=== PATIENT | female | born 1965 | race African-American/Black ===

== ENCOUNTER 2018-08-12 20:49 | Emergency (ER) | payer SELFPAY ==
[~2018-08-12] VITALS: Ht 172.7 cm; Wt 115.9 kg
[~2018-08-12 20:49] MED LIST: FOLI1TAB16 PO; Pantoprazole PO; THIA100V3 IJ
[2018-08-12 21:46] LABS: BILIRUBIN,URINE NEGATIVE (NEG); CLARITY,URINE CLEAR; COLOR,URINE YELLOW; NITRITE,URINE NEGATIVE (NEG); PROTEIN,URINE NEGATIVE (NEG-TRACE)
[2018-08-12 21:51] LABS: BASO # 0.1 x10^3/uL (0.0-0.2); BASO % 1 % (0-3); EOS # 0.2 x10^3/uL (0.0-0.7); EOS % 2 % (0-3); HEMATOCRIT 41.7 % (36.0-47.0); HEMOGLOBIN 13.8 g/dL (12.0-15.5); LYMPH % 30 % (24-48); MEAN CORPUSCULAR HEMOGLOBIN 29 pg (25-35); MEAN CORPUSCULAR HGB CONC 33 g/dL (31-37); MEAN CORPUSCULAR VOLUME 88 fL (79-100); MONO # 0.8 x10^3/uL (0.0-1.1); MONO % 8 % (0-9); NEUT % 60 % (31-73); PLATELET COUNT 185 x10^3/uL (140-400); RED BLOOD COUNT 4.74 x10^6/uL (3.50-5.40); RED CELL DISTRIBUTION WIDTH 14.6 % (11.5-14.5)
[2018-08-12 21:54] LABS: BACTERIA,URINE MODERATE /HPF (0-FEW); SQUAMOUS EPITHELIAL CELL,UR MANY /LPF; WBC,URINE OCC /HPF (0-4)
[2018-08-12 21:59] LABS: CALCIUM 8.8 mg/dL (8.5-10.1); CREATININE 0.8 mg/dL (0.6-1.0); GFR 90.4; POTASSIUM 4.1 mmol/L (3.5-5.1)
--- NOTE | 2018-08-12 22:02 | PHYS DOC ---
Past Medical History Past Medical History: Pancreatitis (LORIE GARZA APRN) Past Surgical History: No Surgical History (LORIE GARZA APRN) Alcohol Use: Occasionally Drug Use: None (LORIE GARZA APRN) Adult General Chief Complaint Chief Complaint: ABDOMINAL PAIN HPI HPI Patient is a 53 year old AA female who presents to the ER with complaints of pain on the left side of her back below her shoulders that feels like her previous pancreatitis attacks. Pt states that she drank a bottle of wine that she received for Armin this week and she fears that may have caused the flare up. Pt states she has also been drinking prune juice to help with constipation. She denies any chest pain, shortness of breath, nausea, vomiting, or diarrhea. Pt denies any recent fevers, dysuria, or difficulty voiding. She reports some increased urinary frequency over the last few days. Pt currently rates her pain a 6/10 on the pain scale. (LORIE GARZA APRN) Review of Systems Review of Systems Constitutional: Denies fever or chills [] Eyes: Denies change in redness, or eye pain [] HENT: Denies nasal congestion or sore throat [] Respiratory: Denies cough or shortness of breath [] Cardiovascular: No additional information not addressed in HPI [] GI: See HPI : Denies dysuria or hematuria; see HPI [] Musculoskeletal: See HPI Integument: Denies rash or skin lesions [] Neurologic: Denies headache, focal weakness or sensory changes [] (LORIE GARZA APRN) Current Medications Current Medications Current Medications Medications (Trade) Dose Ordered Sig/Matthew Start Time Stop Time Status Last Admin Dose Admin Fentanyl Citrate (Fentanyl 2ml Vial) 50 mcg 1X ONCE 08/12/18 22:30 08/12/18 22:31 DC 08/12/18 22:50 50 MCG Info (CONTRAST GIVEN -- Rx MONITORING) 1 each PRN DAILY PRN 08/12/18 22:45 08/13/18 00:02 DC Iohexol (Omnipaque 300 Mg/ml) 75 ml 1X ONCE 08/12/18 22:30 08/12/18 22:31 DC 08/12/18 22:42 75 ML Magnesium Citrate (Citroma) 296 ml 1X ONCE 08/12/18 23:55 08/12/18 23:56 DC Magnesium Sulfate 50 ml @ 25 mls/hr 1X ONCE 08/12/18 23:15 08/13/18 01:14 Cancel Ondansetron HCl (Zofran) 4 mg 1X ONCE 08/12/18 22:30 08/12/18 22:31 DC 08/12/18 22:50 4 MG Sodium Chloride 1,000 ml @ 1,000 mls/hr 1X ONCE 08/12/18 22:30 08/12/18 23:29 DC 08/12/18 22:50 1,000 MLS/HR (ILDA MCFARLAND DO) Allergies Allergies Allergies Coded Allergies Type Severity Reaction Last Updated Verified No Known Drug Allergies 07/05/18 No (ILDA MCFARLAND DO) Physical Exam Physical Exam Constitutional: Well developed, well nourished, no acute distress, non-toxic appearance, obese. [] HENT: Normocephalic, atraumatic, bilateral external ears normal, oropharynx moist, no oral exudates, nose normal. [] Eyes: conjunctiva normal, no discharge. [] Neck: Normal range of motion, no stridor. [] Cardiovascular:Heart rate regular rhythm, no murmur [] Lungs & Thorax: Bilateral breath sounds clear to auscultation [] Abdomen: Bowel sounds normal, soft, no tenderness, no masses, no pulsatile masses. [] Skin: Warm, dry, no erythema, no rash. [] Back: no CVA tenderness. [] Extremities: No cyanosis, ROM intact, no edema. [] Neurologic: Alert and oriented X 3, normal motor function, normal sensory function, no focal deficits noted. [] Psychologic: Affect normal, judgement normal, mood normal. [] (LORIE GARZA APRN) Current Patient Data Vital Signs Vital Signs Date Time Temp Pulse Resp B/P (MAP) Pulse Ox O2 Delivery O2 Flow Rate FiO2 08/12/18 23:15 72 16 143/68 (93) 97 Room Air 08/12/18 21:32 97.8 97.8 (ILDA MCFARLAND DO) Lab Values Laboratory Tests Test 08/12/18 21:25 08/12/18 21:39 Urine Collection Type Unknown Urine Color Yellow Urine Clarity Clear Urine pH 6.0 Urine Specific [place] 1.025 Urine Protein Negative mg/dL (NEG-TRACE) Urine Glucose (UA) Negative mg/dL (NEG) Urine Ketones (Stick) Negative mg/dL (NEG) Urine Blood Moderate (NEG) Urine Nitrite Negative (NEG) Urine Bilirubin Negative (NEG) Urine Urobilinogen Dipstick 1.0 mg/dL (0.2 mg/dL) Urine Leukocyte Esterase Negative (NEG) Urine RBC 1-2 /HPF (0-2) Urine WBC Occ /HPF (0-4) Urine Squamous Epithelial Cells Many /LPF Urine Bacteria Moderate /HPF (0-FEW) Urine Mucus Marked /LPF White Blood Count 10.0 x10^3/uL (4.0-11.0) Red Blood Count 4.74 x10^6/uL (3.50-5.40) Hemoglobin 13.8 g/dL (12.0-15.5) Hematocrit 41.7 % (36.0-47.0) Mean Corpuscular Volume 88 fL (79-100) Mean Corpuscular Hemoglobin 29 pg (25-35) Mean Corpuscular Hemoglobin Concent 33 g/dL (31-37) Red Cell Distribution Width 14.6 % (11.5-14.5) H Platelet Count 185 x10^3/uL (140-400) Neutrophils (%) (Auto) 60 % (31-73) Lymphocytes (%) (Auto) 30 % (24-48) Monocytes (%) (Auto) 8 % (0-9) Eosinophils (%) (Auto) 2 % (0-3) Basophils (%) (Auto) 1 % (0-3) Neutrophils # (Auto) 6.0 x10^3uL (1.8-7.7) Lymphocytes # (Auto) 3.0 x10^3/uL (1.0-4.8) Monocytes # (Auto) 0.8 x10^3/uL (0.0-1.1) Eosinophils # (Auto) 0.2 x10^3/uL (0.0-0.7) Basophils # (Auto) 0.1 x10^3/uL (0.0-0.2) Sodium Level 136 mmol/L (136-145) Potassium Level 4.1 mmol/L (3.5-5.1) Chloride Level 102 mmol/L (98-107) Carbon Dioxide Level 27 mmol/L (21-32) Anion Gap 7 (6-14) Blood Urea Nitrogen 15 mg/dL (7-20) Creatinine 0.8 mg/dL (0.6-1.0) Estimated GFR (Cockcroft-Gault) 90.4 BUN/Creatinine Ratio 19 (6-20) Glucose Level 142 mg/dL (70-99) H Calcium Level 8.8 mg/dL (8.5-10.1) Total Bilirubin 0.3 mg/dL (0.2-1.0) Aspartate Amino Transferase (AST) 54 U/L (15-37) H Alanine Aminotransferase (ALT) 70 U/L (14-59) H Alkaline Phosphatase 103 U/L (46-116) Total Protein 7.6 g/dL (6.4-8.2) Albumin 3.1 g/dL (3.4-5.0) L Albumin/Globulin Ratio 0.7 (1.0-1.7) L Lipase 209 U/L (73-393) Laboratory Tests 08/12/18 21:39 Laboratory Tests 08/12/18 21:39 (ILDA MCFARLAND DO) EKG EKG [] (LORIE GARZA APRN) Radiology/Procedures Radiology/Procedures PROCEDURE: CT ABD PELV W/ IV CONTRST ONLY CT study of the abdomen and pelvis with contrast Clinical indications: Left flank pain and abdominal pain. TECHNIQUE: After IV infusion of 75 cc of Omnipaque 300, helical CT scanning of abdomen and pelvis was performed. No GI contrast was administered. This may decrease the sensitivity to detect GI tract pathology. PQRS compliance Statement One or more of the following individualized dose reduction techniques were utilized for this study: 1. Automated exposure control 2. Adjustment of the mA and/or kV according to patient size 3. Use of iterative reconstruction technique COMPARISON: July 05, 2018. FINDINGS:Corrugated appearance of the liver is seen which may be noted with cirrhosis. No focal hepatic mass is seen. Spleen is not enlarged. Pancreas is homogeneous. No peripancreatic inflammation or free fluid is seen today. Small gallstone is seen within the gallbladder. No extrahepatic biliary ductal dilatation is seen. No adrenal mass is evident. Both kidneys are normal. No focal aneurysmal dilatation of the abdominal aorta is seen. No enlarged abdominal or pelvic lymphadenopathy is evident. There is a cyst of the right ovary measuring 5 cm. There is a cyst of the left ovary measuring 3.1 cm. These have developed since the prior study. The appendix is normal. No obstructive bowel pattern is evident. No free air or free fluid or mesenteric edema is seen. No lung base consolidation is evident. No lytic process is seen. IMPRESSION: New finding of bilateral ovarian cysts. Cholelithiasis. Mild fecal retention throughout the colon. No diverticulitis is seen. [] (LORIE GARZA APRN) Course & Med Decision Making Course & Med Decision Making Pertinent Labs and Imaging studies reviewed. (See chart for details) Dx: nonspecific abdominal pain, constipation Ddx: UTI, kidney stone, pancreatitis, gallstones Pt was given 1L of NS, 50 mcg of fentanyl, and 4 mg of zofran in the ER. She reports decreased pain after medications. A bottle of magnesium citrate was also ordered. CBC unremarkable, mild elevation of AST and ALT, lipase normal, UA positive for blood- not concerning for UTI. CT revealed no acute findings, moderate stool in colon. Discussed findings and plan of care with patient who verbalized an understanding of home care, medications, follow-up, and return to ED instructions and was in agreement with the plan of care. [] (LORIE GARZA APRN) Dragon Disclaimer Dragon Disclaimer This electronic medical record was generated, in whole or in part, using a voice recognition dictation system. (LORIE GARZA APRN) Departure Departure Impression: Primary Impression: Abdominal pain Additional Impression: Constipation Disposition: 01 HOME, SELF-CARE Condition: STABLE Referrals: UNKNOWN PCP NAME (PCP) Patient Instructions: Abdominal Pain (Nonspecific), Constipation, Adult, Easy- to-Read Additional Instructions: Increase clear fluids. Follow the constipation instructions given. Follow up with your primary care doctor if symptoms persist, return to the ER if symptoms worsen. Attending Signature Attending Signature I have reviewed the PA/DIRECTOR OF COUNTERINTELLIGENCE's note and plan of care. I was available for consultation as needed during the patient's visit in the emergency department. I agree with the clinical impression, plan, and disposition. (ILDA MCFARLAND DO) Problem Qualifiers Primary Impression: Abdominal pain Abdominal location: unspecified location Qualified Codes: R10.9 - Unspecified abdominal pain Additional Impression: Constipation Constipation type: unspecified constipation type Qualified Codes: K59.00 - Constipation, unspecified LORIE GARZA APRN Aug 12, 2018 22:02 ILDA MCFARLAND DO Aug 13, 2018 01:06
[2018-08-12 22:05] LABS: ALBUMIN 3.1 g/dL (3.4-5.0); ALBUMIN/GLOBULIN RATIO 0.7 (1.0-1.7); TOTAL BILIRUBIN 0.3 mg/dL (0.2-1.0); TOTAL PROTEIN 7.6 g/dL (6.4-8.2)
[2018-08-12] MEDS ORDERED: fentaNYL PF VIAL 100 MCG/2 ML VIAL IV ONE (22:30)
[2018-08-12] MEDS ORDERED: ONDANSETRON PF 4 MG/2 ML VIAL. IV ONE (22:30)
[2018-08-12] MEDS ORDERED: IV NORMAL SALINE 1000ML BAG 1,000 ML IV ONE (22:30)
[2018-08-12] MEDS ORDERED: IOHEXOL 300 MG/ML 100ML VIAL. IV ONE (22:30)
[2018-08-12] MEDS ORDERED: CONTRAST GIVEN. MC PRN (22:45)
--- NOTE | 2018-08-12 23:09 | RAD ---
CT study of the abdomen and pelvis with contrast Clinical indications: Left flank pain and abdominal pain. TECHNIQUE: After IV infusion of 75 cc of Omnipaque 300, helical CT scanning of abdomen and pelvis was performed. No GI contrast was administered. This may decrease the sensitivity to detect GI tract pathology. PQRS compliance Statement One or more of the following individualized dose reduction techniques were utilized for this study: 1. Automated exposure control 2. Adjustment of the mA and/or kV according to patient size 3. Use of iterative reconstruction technique COMPARISON: July 05, 2018. FINDINGS:Corrugated appearance of the liver is seen which may be noted with cirrhosis. No focal hepatic mass is seen. Spleen is not enlarged. Pancreas is homogeneous. No peripancreatic inflammation or free fluid is seen today. Small gallstone is seen within the gallbladder. No extrahepatic biliary ductal dilatation is seen. No adrenal mass is evident. Both kidneys are normal. No focal aneurysmal dilatation of the abdominal aorta is seen. No enlarged abdominal or pelvic lymphadenopathy is evident. There is a cyst of the right ovary measuring 5 cm. There is a cyst of the left ovary measuring 3.1 cm. These have developed since the prior study. The appendix is normal. No obstructive bowel pattern is evident. No free air or free fluid or mesenteric edema is seen. No lung base consolidation is evident. No lytic process is seen. IMPRESSION: New finding of bilateral ovarian cysts. Cholelithiasis. Mild fecal retention throughout the colon. No diverticulitis is seen. Electronically signed by: Reddy Pandey MD (08/12/2018 11:05 PM) [facility]
[2018-08-12 23:15] VITALS: BP 143/68
[2018-08-12] MEDS ORDERED: MAGNESIUM SULFATE 2GM 50 ML IV ONE (23:15)
[2018-08-12] MEDS ORDERED: MAGNESIUM CITRATE 296 ML SOLUTION. PO ONE (23:55)
== END 2018-08-13 | disposition home or self-care (01) ==
LOC: ER 20:49
DX: K59.00 Constipation, unspecified (principal); R10.9 Unspecified abdominal pain; K80.20 Calculus of gallbladder without cholecystitis without obstruction; N83.202 Unspecified ovarian cyst, left side; N83.201 Unspecified ovarian cyst, right side
CPT/HCPCS: 36415; 74177; 80053; 81001; 83690; 85025; 87086; 96374; 96375; 99284; J2405; J3010; J7030; Q9967

== ENCOUNTER 2018-09-14 19:53 | Emergency (ER) | payer SELFPAY ==
[~2018-09-14] VITALS: Ht 172.7 cm; Wt 115.7 kg
[2018-09-14 20:16] LABS: BILIRUBIN,URINE NEGATIVE (NEG); CLARITY,URINE CLEAR; COLOR,URINE YELLOW; NITRITE,URINE NEGATIVE (NEG); PH,URINE 5.5; PROTEIN,URINE NEGATIVE (NEG-TRACE)
[2018-09-14 20:20] LABS: BACTERIA,URINE FEW /HPF (0-FEW); RBC,URINE OCC /HPF (0-2); SQUAMOUS EPITHELIAL CELL,UR OCC /LPF; WBC,URINE OCC /HPF (0-4)
[2018-09-14 20:59] LABS: BASO % 0 % (0-3); EOS # 0.1 x10^3/uL (0.0-0.7); EOS % 2 % (0-3); HEMATOCRIT 39.2 % (36.0-47.0); HEMOGLOBIN 12.8 g/dL (12.0-15.5); LYMPH # 1.7 x10^3/uL (1.0-4.8); LYMPH % 25 % (24-48); MEAN CORPUSCULAR HEMOGLOBIN 28 pg (25-35); MEAN CORPUSCULAR HGB CONC 33 g/dL (31-37); MEAN CORPUSCULAR VOLUME 87 fL (79-100); MONO # 0.7 x10^3/uL (0.0-1.1); MONO % 10 % (0-9); NEUT # 4.2 x10^3uL (1.8-7.7); NEUT % 62 % (31-73); PLATELET COUNT 192 x10^3/uL (140-400); RED BLOOD COUNT 4.53 x10^6/uL (3.50-5.40); WHITE BLOOD COUNT 6.8 x10^3/uL (4.0-11.0)
[2018-09-14 21:08] LABS: CALCIUM 9.1 mg/dL (8.5-10.1); GFR 69.9; POTASSIUM 3.8 mmol/L (3.5-5.1)
[2018-09-14 21:14] LABS: ALBUMIN 2.9 g/dL (3.4-5.0); ALBUMIN/GLOBULIN RATIO 0.6 (1.0-1.7); TOTAL BILIRUBIN 0.3 mg/dL (0.2-1.0); TOTAL PROTEIN 7.6 g/dL (6.4-8.2)
--- NOTE | 2018-09-14 21:39 | RAD ---
CHEST PA LATERAL CLINICAL INDICATION: cough and short of breath COMPARISON: None FINDINGS: Heart is normal in size. Lungs are clear. No pneumothorax or pleural effusion. Visualized bony thorax within normal limits. IMPRESSION: No acute pulmonary process. Electronically signed by: Alexi Perez DO (09/14/2018 9:36 PM) [facility]
[2018-09-14] MEDS ORDERED: HYDROcodone/APAP 5/325MG 1 TAB TABLET PO ONE (22:15)
[2018-09-14] MEDS ORDERED: IBUP-1060 PO (22:51)
--- NOTE | 2018-09-14 22:54 | PHYS DOC ---
Past Medical History Past Medical History: Pancreatitis Past Surgical History: No Surgical History Alcohol Use: Occasionally Drug Use: None Adult General Chief Complaint Chief Complaint: SHORTNESS OF BREATH HPI HPI Patient is a 53 year old female who presents with right sided chest pain with inspiration. She states that she has had a cough x 1 week and then developed the pain. She denies fevers or body aches. She denies SOA. Review of Systems Review of Systems Constitutional: Denies fever or chills [] Eyes: Denies change in visual acuity, redness, or eye pain [] HENT: Denies nasal congestion or sore throat [] Respiratory: See HPI Cardiovascular: No additional information not addressed in HPI [] GI: Denies abdominal pain, nausea, vomiting, bloody stools or diarrhea [] : Denies dysuria or hematuria [] Musculoskeletal: Denies back pain or joint pain [] Integument: Denies rash or skin lesions [] Neurologic: Denies headache, focal weakness or sensory changes [] Endocrine: Denies polyuria or polydipsia [] All other systems were reviewed and found to be within normal limits, except as documented in this note. Current Medications Current Medications Current Medications Medications (Trade) Dose Ordered Sig/Matthew Start Time Stop Time Status Last Admin Dose Admin Acetaminophen/ Hydrocodone Bitart (Lortab 5/325) 1 tab 1X ONCE 09/14/18 22:15 09/14/18 22:16 DC 09/14/18 22:36 1 TAB Allergies Allergies Allergies Coded Allergies Type Severity Reaction Last Updated Verified No Known Drug Allergies 07/05/18 No Physical Exam Physical Exam Constitutional: Well developed, well nourished, no acute distress, non-toxic appearance. [] HENT: Normocephalic, atraumatic, bilateral external ears normal, oropharynx moist, no oral exudates, nose normal. [] Eyes: PERRLA, EOMI, conjunctiva normal, no discharge. [] Neck: Normal range of motion, no tenderness, supple, no stridor. [] Cardiovascular:Heart rate regular rhythm, no murmur, reproducible pain to the right chest[] Lungs & Thorax: Bilateral breath sounds clear to auscultation with no wheezing, rales or rhonchi [] Abdomen: Bowel sounds normal, soft, no tenderness, no masses, no pulsatile masses. [] Skin: Warm, dry, no erythema, no rash. [] Back: No tenderness, no CVA tenderness. [] Extremities: No tenderness, no cyanosis, no clubbing, ROM intact, no edema. [] Neurologic: Alert and oriented X 3, normal motor function, normal sensory function, no focal deficits noted. [] Psychologic: Affect normal, judgement normal, mood normal. [] Current Patient Data Vital Signs Lab Values Laboratory Tests Test 09/14/18 20:00 09/14/18 20:45 Urine Color Yellow Urine Clarity Clear Urine pH 5.5 Urine Specific [place] >=1.030 Urine Protein Negative mg/dL (NEG-TRACE) Urine Glucose (UA) Negative mg/dL (NEG) Urine Ketones (Stick) Negative mg/dL (NEG) Urine Blood Small (NEG) Urine Nitrite Negative (NEG) Urine Bilirubin Negative (NEG) Urine Urobilinogen Dipstick 1.0 mg/dL (0.2 mg/dL) Urine Leukocyte Esterase Negative (NEG) Urine RBC Occ /HPF (0-2) Urine WBC Occ /HPF (0-4) Urine Squamous Epithelial Cells Occ /LPF Urine Bacteria Few /HPF (0-FEW) Urine Mucus Mod /LPF White Blood Count 6.8 x10^3/uL (4.0-11.0) Red Blood Count 4.53 x10^6/uL (3.50-5.40) Hemoglobin 12.8 g/dL (12.0-15.5) Hematocrit 39.2 % (36.0-47.0) Mean Corpuscular Volume 87 fL (79-100) Mean Corpuscular Hemoglobin 28 pg (25-35) Mean Corpuscular Hemoglobin Concent 33 g/dL (31-37) Red Cell Distribution Width 14.0 % (11.5-14.5) Platelet Count 192 x10^3/uL (140-400) Neutrophils (%) (Auto) 62 % (31-73) Lymphocytes (%) (Auto) 25 % (24-48) Monocytes (%) (Auto) 10 % (0-9) H Eosinophils (%) (Auto) 2 % (0-3) Basophils (%) (Auto) 0 % (0-3) Neutrophils # (Auto) 4.2 x10^3uL (1.8-7.7) Lymphocytes # (Auto) 1.7 x10^3/uL (1.0-4.8) Monocytes # (Auto) 0.7 x10^3/uL (0.0-1.1) Eosinophils # (Auto) 0.1 x10^3/uL (0.0-0.7) Basophils # (Auto) 0.0 x10^3/uL (0.0-0.2) Sodium Level 142 mmol/L (136-145) Potassium Level 3.8 mmol/L (3.5-5.1) Chloride Level 103 mmol/L (98-107) Carbon Dioxide Level 29 mmol/L (21-32) Anion Gap 10 (6-14) Blood Urea Nitrogen 19 mg/dL (7-20) Creatinine 1.0 mg/dL (0.6-1.0) Estimated GFR (Cockcroft-Gault) 69.9 BUN/Creatinine Ratio 19 (6-20) Glucose Level 155 mg/dL (70-99) H Calcium Level 9.1 mg/dL (8.5-10.1) Total Bilirubin 0.3 mg/dL (0.2-1.0) Aspartate Amino Transferase (AST) 54 U/L (15-37) H Alanine Aminotransferase (ALT) 63 U/L (14-59) H Alkaline Phosphatase 99 U/L (46-116) Troponin I Quantitative < 0.017 ng/mL (0.000-0.055) Total Protein 7.6 g/dL (6.4-8.2) Albumin 2.9 g/dL (3.4-5.0) L Albumin/Globulin Ratio 0.6 (1.0-1.7) L Laboratory Tests 09/14/18 20:45 Laboratory Tests 09/14/18 20:45 EKG EKG [] Radiology/Procedures Radiology/Procedures [][facility] [address] [place] [address] IMAGING REPORT Signed PATIENT: ROSEANNA JOHNSON ACCOUNT: [id number] : 1965 LOCATION: ER AGE: 53 SEX: F EXAM STATUS: REG ER ORD. PHYSICIAN: MAYA ELAINE APRN REASON: cough, pain with inspiration PROCEDURE: CHEST PA & LATERAL CHEST PA LATERAL CLINICAL INDICATION: cough and short of breath COMPARISON: None FINDINGS: Heart is normal in size. Lungs are clear. No pneumothorax or pleural effusion. Visualized bony thorax within normal limits. IMPRESSION: No acute pulmonary process. Electronically signed by: Alexi Quinones DO (09/14/2018 9:36 PM) [facility] DICTATED and SIGNED BY: ALEXI QUINONES DO DATE: 09/14/182135 Course & Med Decision Making Course & Med Decision Making Pertinent Labs and Imaging studies reviewed. (See chart for details) []The patient was given a dose of hydrocodone for pain. Dragon Disclaimer Dragon Disclaimer This electronic medical record was generated, in whole or in part, using a voice recognition dictation system. Departure Departure Impression: Primary Impression: Pleurisy Disposition: 01 HOME, SELF-CARE Condition: STABLE Referrals: UNKNOWN PCP NAME (PCP) Patient Instructions: Pleurisy Additional Instructions: Take ibuprofen as directed. Increase fluids and rest. Use a humidifier by your bedside at night. If you're not improving in 3 days follow-up with your primary care provider if worsening return to the emergency department. Scripts Ibuprofen (IBUPROFEN) 800 Mg Tablet 800 MG PO PRN Q6HRS PRN for INFLAMMATION, #20 TAB Prov: MAYA ELAINE APRN 09/14/18 MAYA ELAINE APRN Sep 14, 2018 22:54
[2018-09-14 23:11] VITALS: BP 110/56
--- NOTE | 2018-09-15 10:39 | EKG ---
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
== END 2018-09-14 23:15 | disposition home or self-care (01) ==
LOC: ER 19:53
DX: R09.1 Pleurisy (principal)
CPT/HCPCS: 36415; 71046; 80053; 81001; 84484; 85025; 93005; 99284-25

== ENCOUNTER 2018-11-13 20:11 | Emergency (ER) | payer SELFPAY ==
[~2018-11-13] VITALS: Ht 160 cm; Wt 113.4 kg
[~2018-11-13 20:11] MED LIST changes: +IBUP-1060 PO
[2018-11-13 20:37] LABS: BILIRUBIN,URINE NEGATIVE (NEG); CLARITY,URINE CLEAR; COLOR,URINE YELLOW; NITRITE,URINE NEGATIVE (NEG); PH,URINE 5.5; PROTEIN,URINE NEGATIVE (NEG-TRACE)
[2018-11-13 20:42] LABS: BACTERIA,URINE 0 /HPF (0-FEW); SQUAMOUS EPITHELIAL CELL,UR MOD /LPF
[2018-11-13 20:43] LABS: RBC,URINE OCC /HPF (0-2); WBC,URINE OCC /HPF (0-4)
[2018-11-13] MEDS ORDERED: NEOMY/BACITR/POLYMYXIN OINT PACKET. TP ONE (22:30)
[2018-11-13] MEDS ORDERED: CEPHALEXIN 250 MG CAPSULE. PO ONE (22:30)
[2018-11-13 22:31] VITALS: BP 158/73
[2018-11-13] MEDS ORDERED: CEPH-264 PO (22:48)
[2018-11-13] MEDS ORDERED: ACET-704 PO (22:48)
[2018-11-13] MEDS ORDERED: MUPI15CR8 TP (22:48)
--- NOTE | 2018-11-13 22:48 | PHYS DOC ---
Past Medical History Past Medical History: Pancreatitis Past Surgical History: No Surgical History Alcohol Use: Occasionally Drug Use: None Adult General Chief Complaint Chief Complaint: ABDOMINAL PAIN HPI HPI Patient is a 53 year old female who presents with abdominal pain. Patient states for the past few weeks she has had bilateral groin pain. She describes the pain as a pressure sensation. Movement makes the pain worse. Nothing improves the pain. Additionally, patient has an abscess on her belly that has been present for two weeks. She states the abscess came to a head one week ago and drained some pus. She denies any fevers, chills, nausea, vomiting, hematuria, or vaginal discharge. Review of Systems Review of Systems Constitutional: Denies fever or chills [] Eyes: Denies redness, or eye pain [] HENT: Denies nasal congestion or sore throat [] Respiratory: Denies cough or shortness of breath [] Cardiovascular: Denies chest pain or palpitations GI: Reports abdominal pain and abscess on abdomen. Denies nausea, vomiting, bloody stools or diarrhea [] : Denies dysuria or hematuria [] Musculoskeletal: Denies back pain or joint pain [] Integument: Denies rash or skin lesions [] Neurologic: Denies headache or focal weakness[] Complete systems were reviewed and found to be within normal limits, except as documented in this note. Current Medications Current Medications Current Medications Medications (Trade) Dose Ordered Sig/Matthew Start Time Stop Time Status Last Admin Dose Admin Cephalexin HCl (Keflex) 500 mg 1X ONCE 11/13/18 22:30 11/13/18 22:31 DC 11/13/18 22:49 500 MG Ketorolac Tromethamine (Toradol 30mg Vial) 30 mg 1X ONCE 11/13/18 23:00 11/13/18 23:01 DC 11/13/18 22:49 30 MG Neomycin/ Polymyxin/ Bacitracin (Triple Antibiotic Ointment) 1 pkt 1X ONCE 11/13/18 22:30 11/13/18 22:31 DC 11/13/18 22:49 1 PKT Allergies Allergies Allergies Coded Allergies Type Severity Reaction Last Updated Verified No Known Drug Allergies 07/05/18 No Physical Exam Physical Exam Constitutional: No acute distress, non-toxic appearance. [] HENT: Normocephalic, atraumatic Eyes: EOMI, conjunctiva normal, no discharge. [] Neck: Normal range of motion, no tenderness Cardiovascular:Heart rate regular rhythm, no murmur [] Lungs & Thorax: Bilateral breath sounds clear to auscultation [] Abdomen: Bowel sounds normal, soft, no tenderness, no rebound, rigidity, or gaurding. 3 cm ulcerated abscess in RLQ. [] Skin: 3 cm ulcerated abscess in RLQ of abdomen, warm, dry, no rash. [] Back: No tenderness, no CVA tenderness. [] Extremities: No tenderness, no edema. [] Neurologic: Alert and oriented X 3, no focal deficits noted. [] Psychologic: Judgement normal, mood normal. [] Current Patient Data Vital Signs Vital Signs Date Time Temp Pulse Resp B/P (MAP) Pulse Ox O2 Delivery O2 Flow Rate FiO2 11/13/18 22:31 76 158/73 (101) 95 Room Air 11/13/18 20:30 98.3 16 98.3 Lab Values Laboratory Tests Test 11/13/18 20:15 11/13/18 20:20 Urine Collection Type Unknown Urine Color Yellow Urine Clarity Clear Urine pH 5.5 Urine Specific [place] >=1.030 Urine Protein Negative mg/dL (NEG-TRACE) Urine Glucose (UA) Negative mg/dL (NEG) Urine Ketones (Stick) Trace mg/dL (NEG) Urine Blood Negative (NEG) Urine Nitrite Negative (NEG) Urine Bilirubin Negative (NEG) Urine Urobilinogen Dipstick 1.0 mg/dL (0.2 mg/dL) Urine Leukocyte Esterase Negative (NEG) Urine RBC Occ /HPF (0-2) Urine WBC Occ /HPF (0-4) Urine Squamous Epithelial Cells Mod /LPF Urine Bacteria 0 /HPF (0-FEW) Urine Mucus Mod /LPF POC Urine HCG, Qualitative Hcg negative (Negative) EKG EKG [] Radiology/Procedures Radiology/Procedures [] Course & Med Decision Making Course & Med Decision Making 53 year old female presented to the emergency department for chronic abdominal pain and abscess on abdomen. Patient stated abscess drained one week ago. She denies any fevers, chills, or hematuria. Abdominal exam revealed no tenderness. 3 cm ulcerated abscess was present in RLQ of abdomen. Labs obtained and posted to chart. Urine showed no signs of kidney stone. Symptomatic treatment pr ovided with interval improvement. Patient stable for discharge with outpatient follow-up with PCP. Discussed findings and plan with patient and family, who acknowledge understanding and agreement. [] Dragon Disclaimer Dragon Disclaimer This electronic medical record was generated, in whole or in part, using a voice recognition dictation system. Departure Departure Impression: Primary Impression: Abdominal pain Additional Impression: Abscess Disposition: HOME, SELF-CARE Condition: STABLE Referrals: UNKNOWN PCP NAME (PCP) Patient Instructions: Abdominal Pain (Nonspecific), Abscess, Care After Scripts Acetaminophen With Codeine (TYLENOL WITH CODEINE #3 TABLET) 1 Each Tablet 1 TAB PO PRN Q6HRS PRN for PAIN, #10 TAB Prov: ILDA MCFARLAND DO 11/13/18 Mupirocin Calcium (MUPIROCIN CREAM) 15 Gm Cream..g. 1 MYRANDA TP TID for 7 Days, TUBE Prov: ILDA MCFARLAND DO 11/13/18 Cephalexin (KEFLEX) 500 Mg Capsule 500 MG PO QID for 5 Days, #20 CAP Prov: ILDA MCFARLAND DO 11/13/18 Problem Qualifiers Primary Impression: Abdominal pain Abdominal location: unspecified location Qualified Codes: R10.9 - Unspecified abdominal pain ILDA MCFARLAND DO Nov 13, 2018 22:48
[2018-11-13] MEDS ORDERED: KETOROLAC 30 MG/ML VIAL. IM ONE (23:00)
== END 2018-11-13 23:13 | disposition home or self-care (01) ==
LOC: ER 20:11
DX: L02.211 Cutaneous abscess of abdominal wall (principal); G89.29 Other chronic pain
CPT/HCPCS: 81001; 81025; 96372; 99283; J1885

== ENCOUNTER 2018-12-25 19:16 | Emergency (ER) | payer SELFPAY ==
[~2018-12-25] VITALS: Ht 160 cm; Wt 113.4 kg
[~2018-12-25 19:16] MED LIST changes: +ACET-704 PO; +CEPH-264 PO; +MUPI15CR8 TP
[2018-12-25 20:02] LABS: BILIRUBIN,URINE NEGATIVE (NEG); CLARITY,URINE CLEAR; COLOR,URINE YELLOW; NITRITE,URINE NEGATIVE (NEG); PH,URINE 5.5; PROTEIN,URINE NEGATIVE (NEG-TRACE); UROBILINOGEN,URINE 0.2 mg/dL (0.2 mg/dL)
[2018-12-25] MEDS ORDERED: IV NORMAL SALINE 1000ML BAG 1,000 ML IV SCH (20:03)
[2018-12-25] MEDS ORDERED: fentaNYL PF VIAL 100 MCG/2 ML VIAL IV PRN (20:15)
[2018-12-25 20:16] LABS: BACTERIA,URINE FEW /HPF (0-FEW); RBC,URINE OCC /HPF (0-2); SQUAMOUS EPITHELIAL CELL,UR OCC /LPF
[2018-12-25 20:25] LABS: BASO # 0.1 x10^3/uL (0.0-0.2); BASO % 1 % (0-3); EOS # 0.1 x10^3/uL (0.0-0.7); EOS % 2 % (0-3); HEMATOCRIT 40.5 % (36.0-47.0); HEMOGLOBIN 13.5 g/dL (12.0-15.5); LYMPH # 2.9 x10^3/uL (1.0-4.8); LYMPH % 34 % (24-48); MEAN CORPUSCULAR HEMOGLOBIN 29 pg (25-35); MEAN CORPUSCULAR HGB CONC 33 g/dL (31-37); MEAN CORPUSCULAR VOLUME 88 fL (79-100); MONO # 0.9 x10^3/uL (0.0-1.1); MONO % 10 % (0-9); NEUT # 4.7 x10^3uL (1.8-7.7); NEUT % 54 % (31-73); PLATELET COUNT 174 x10^3/uL (140-400); RED BLOOD COUNT 4.59 x10^6/uL (3.50-5.40); RED CELL DISTRIBUTION WIDTH 14.2 % (11.5-14.5); WHITE BLOOD COUNT 8.7 x10^3/uL (4.0-11.0)
[2018-12-25 20:41] LABS: CALCIUM 9.1 mg/dL (8.5-10.1); CREATININE 0.9 mg/dL (0.6-1.0); POTASSIUM 3.9 mmol/L (3.5-5.1)
[2018-12-25] MEDS ORDERED: ONDANSETRON PF 4 MG/2 ML VIAL. IV ONE (20:45)
[2018-12-25 20:48] LABS: ALBUMIN 3.1 g/dL (3.4-5.0); ALBUMIN/GLOBULIN RATIO 0.7 (1.0-1.7); TOTAL BILIRUBIN 0.3 mg/dL (0.2-1.0); TOTAL PROTEIN 7.7 g/dL (6.4-8.2)
--- NOTE | 2018-12-25 20:53 | RAD ---
CT Abdomen and Pelvis without contrast History: Flank pain Technique: Noncontrast CT imaging was performed of the abdomen and pelvis. Multiplanar images are reviewed. Exposure: One or more of the following individualized dose reduction techniques were utilized for this examination: 1. Automated exposure control 2. Adjustment of the mA and/or kV according to patient size 3. Use of iterative reconstruction technique. Comparison: August 12, 2018 Findings: There is a small 0.2 to 0.3 cm left renal calculus, no hydronephrosis of either kidney. Ureters are somewhat difficult to visualize in their entirety and there are phleboliths present, ureters not significantly dilated. Evaluation of bowel is limited without oral contrast. Bowel is not significantly dilated. There is no significant free fluid or free air. Normal appendix is visualized. There is retained stool greater of the right colon. There is again nodular margin of the liver. Evaluation of abdominal visceral organs is limited without intravenous contrast, no new focal abnormality liver, spleen, pancreas. There are again some nonspecific nodes in the superior abdomen in the gastrohepatic region unchanged in size. There is again small gallstone. Previously seen adnexal cysts are not seen on this exam. Impression: 1. There is small nonobstructive left renal calculus, no hydronephrosis. Ureters are somewhat difficult to visualize in their entirety and there are phleboliths present although no significant ureteral dilatation. 2. There is evidence of cirrhosis. 3. There is small gallstone. 4. There is no CT evidence of acute appendicitis. Electronically signed by: Vega Rodriguez MD (12/25/2018 8:50 PM) [facility]
[2018-12-25] MEDS ORDERED: TRAM50TA PO (21:07)
[2018-12-25] MEDS ORDERED: ONDA4TAB7 PO (21:07)
[2018-12-25] MEDS ORDERED: SULF1TAB24 PO (21:07)
--- NOTE | 2018-12-25 21:10 | PHYS DOC ---
Past Medical History Past Medical History: Diabetes-Type II, High Cholesterol, Hypertension, Pancreatitis Past Surgical History: No Surgical History Alcohol Use: Occasionally Drug Use: None Adult General Chief Complaint Chief Complaint: FLANK PAIN HPI HPI Patient is a 53-year-old female who presents with complaint of left flank pain that started this morning. Patient also indicates that she has had some nausea. She states that she drank a few beers over the weekend and is worried that she may have caused some inflammation of her pancreas that she has a history of pancreatitis. She rates pain at an 8 out of 10. She states that nothing is improving her pain. She denies any fever. She does admit to some urinary di scomfort.[] Review of Systems Review of Systems Constitutional: Denies fever or chills [] Respiratory: Denies cough or shortness of breath [] Cardiovascular: No additional information not addressed in HPI [] GI: Complains of left lower and epigastric abdominal pain with nausea. Denies vomiting or diarrhea [] : Complains of dysuria without hematuria [] Musculoskeletal: Complains of left-sided back pain [] All other systems were reviewed and found to be within normal limits, except as documented in this note. Current Medications Current Medications Current Medications Medications (Trade) Dose Ordered Sig/Matthew Start Time Stop Time Status Last Admin Dose Admin Fentanyl Citrate (Fentanyl 2ml Vial) 25 mcg PRN Q15MIN PRN 12/25/18 20:15 12/25/18 21:23 DC 12/25/18 20:33 25 MCG Ondansetron HCl (Zofran) 4 mg 1X ONCE 12/25/18 20:45 12/25/18 20:46 DC 12/25/18 20:32 4 MG Sodium Chloride 1,000 ml @ 1,000 mls/hr Q1H 12/25/18 20:03 12/25/18 21:02 DC 12/25/18 20:32 1,000 MLS/HR Allergies Allergies Allergies Coded Allergies Type Severity Reaction Last Updated Verified No Known Drug Allergies 07/05/18 No Physical Exam Physical Exam Constitutional: Well developed, well nourished, no acute distress, non-toxic appearance. [] HENT: Normocephalic, atraumatic, bilateral external ears normal, oropharynx moist, no oral exudates, nose normal. [] Eyes: PERRLA, EOMI, conjunctiva normal, no discharge. [] Neck: Normal range of motion, no tenderness, supple, no stridor. [] Cardiovascular:Heart rate regular rhythm, no murmur [] Lungs & Thorax: Bilateral breath sounds clear to auscultation [] Abdomen: Bowel sounds normal, soft, with mild epigastric and left lower quadrant tenderness. [] Skin: Warm, dry, no erythema, no rash. [] Extremities: No tenderness, no cyanosis, no clubbing, ROM intact, no edema. [] Neurologic: Alert and oriented X 3, no focal deficits noted. [] Current Patient Data Vital Signs Vital Signs Date Time Temp Pulse Resp B/P (MAP) Pulse Ox O2 Delivery O2 Flow Rate FiO2 12/25/18 21:15 69 18 136/60 (85) 98 12/25/18 19:17 99.0 Room Air 99.0 Lab Values Laboratory Tests Test 12/25/18 19:36 12/25/18 20:10 Urine Color Yellow Urine Clarity Clear Urine pH 5.5 Urine Specific [place] >=1.030 Urine Protein Negative mg/dL (NEG-TRACE) Urine Glucose (UA) Negative mg/dL (NEG) Urine Ketones (Stick) Trace mg/dL (NEG) Urine Blood Negative (NEG) Urine Nitrite Negative (NEG) Urine Bilirubin Negative (NEG) Urine Urobilinogen Dipstick 0.2 mg/dL (0.2 mg/dL) Urine Leukocyte Esterase Small (NEG) Urine RBC Occ /HPF (0-2) Urine WBC 5-10 /HPF (0-4) Urine Squamous Epithelial Cells Occ /LPF Urine Bacteria Few /HPF (0-FEW) Urine Mucus Mod /LPF White Blood Count 8.7 x10^3/uL (4.0-11.0) Red Blood Count 4.59 x10^6/uL (3.50-5.40) Hemoglobin 13.5 g/dL (12.0-15.5) Hematocrit 40.5 % (36.0-47.0) Mean Corpuscular Volume 88 fL (79-100) Mean Corpuscular Hemoglobin 29 pg (25-35) Mean Corpuscular Hemoglobin Concent 33 g/dL (31-37) Red Cell Distribution Width 14.2 % (11.5-14.5) Platelet Count 174 x10^3/uL (140-400) Neutrophils (%) (Auto) 54 % (31-73) Lymphocytes (%) (Auto) 34 % (24-48) Monocytes (%) (Auto) 10 % (0-9) H Eosinophils (%) (Auto) 2 % (0-3) Basophils (%) (Auto) 1 % (0-3) Neutrophils # (Auto) 4.7 x10^3uL (1.8-7.7) Lymphocytes # (Auto) 2.9 x10^3/uL (1.0-4.8) Monocytes # (Auto) 0.9 x10^3/uL (0.0-1.1) Eosinophils # (Auto) 0.1 x10^3/uL (0.0-0.7) Basophils # (Auto) 0.1 x10^3/uL (0.0-0.2) Sodium Level 141 mmol/L (136-145) Potassium Level 3.9 mmol/L (3.5-5.1) Chloride Level 104 mmol/L (98-107) Carbon Dioxide Level 28 mmol/L (21-32) Anion Gap 9 (6-14) Blood Urea Nitrogen 18 mg/dL (7-20) Creatinine 0.9 mg/dL (0.6-1.0) Estimated GFR (Cockcroft-Gault) 79.0 BUN/Creatinine Ratio 20 (6-20) Glucose Level 152 mg/dL (70-99) H Calcium Level 9.1 mg/dL (8.5-10.1) Total Bilirubin 0.3 mg/dL (0.2-1.0) Aspartate Amino Transferase (AST) 69 U/L (15-37) H Alanine Aminotransferase (ALT) 108 U/L (14-59) H Alkaline Phosphatase 82 U/L (46-116) Total Protein 7.7 g/dL (6.4-8.2) Albumin 3.1 g/dL (3.4-5.0) L Albumin/Globulin Ratio 0.7 (1.0-1.7) L Lipase 105 U/L (73-393) Laboratory Tests 12/25/18 20:10 Laboratory Tests 12/25/18 20:10 EKG EKG [] Radiology/Procedures Radiology/Procedures [] Impressions: PROCEDURE: CT ABDOMEN PELVIS WO CONTRAST CT Abdomen and Pelvis without contrast History: Flank pain Technique: Noncontrast CT imaging was performed of the abdomen and pelvis. Multiplanar images are reviewed. Exposure: One or more of the following individualized dose reduction techniques were utilized for this examination: 1. Automated exposure control 2. Adjustment of the mA and/or kV according to patient size 3. Use of iterative reconstruction technique. Comparison: August 12, 2018 Findings: There is a small 0.2 to 0.3 cm left renal calculus, no hydronephrosis of either kidney. Ureters are somewhat difficult to visualize in their entirety and there are phleboliths present, ureters not significantly dilated. Evaluation of bowel is limited without oral contrast. Bowel is not significantly dilated. There is no significant free fluid or free air. Normal appendix is visualized. There is retained stool greater of the right colon. There is again nodular margin of the liver. Evaluation of abdominal visceral organs is limited without intravenous contrast, no new focal abnormality liver, spleen, pancreas. There are again some nonspecific nodes in the superior abdomen in the gastrohepatic region unchanged in size. There is again small gallstone. Previously seen adnexal cysts are not seen on this exam. Impression: 1. There is small nonobstructive left renal calculus, no hydronephrosis. Ureters are somewhat difficult to visualize in their entirety and there are phleboliths present although no significant ureteral dilatation. 2. There is evidence of cirrhosis. 3. There is small gallstone. 4. There is no CT evidence of acute appendicitis. Electronically signed by: Vega Rodriguez MD (12/25/2018 8:50 PM) [facility] Course & Med Decision Making Course & Med Decision Making Pertinent Labs and Imaging studies reviewed. (See chart for details) [] Dragon Disclaimer Dragon Disclaimer This electronic medical record was generated, in whole or in part, using a voice recognition dictation system. Departure Departure Impression: Primary Impression: Left flank pain Additional Impression: UTI (urinary tract infection) Disposition: HOME, SELF-CARE Condition: STABLE Referrals: UNKNOWN PCP NAME (PCP) Patient Instructions: Flank Pain, Urinary Tract Infection Scripts Ondansetron Hcl (ZOFRAN) 4 Mg Tablet 4 MG PO PRN TID PRN for NAUSEA, #15 nausea/vomiting Prov: TIERNEY PROCTOR Jr. DO 12/25/18 Tramadol Hcl (TRAMADOL HCL) 50 Mg Tablet 50 MG PO Q6HRS PRN for PAIN, #12 TAB Prov: TIERNEY PROCTOR Jr. DO 12/25/18 Sulfamethoxazole/Trimethoprim (BACTRIM DS TABLET) 1 Each Tablet 1 TAB PO BID, #14 TAB Prov: TIERNEY PROCTOR Jr. DO 12/25/18 Problem Qualifiers Additional Impression: UTI (urinary tract infection) Urinary tract infection type: site unspecified Hematuria presence: without hematuria Qualified Codes: N39.0 - Urinary tract infection, site not specified TIERNEY PROCTOR Jr. DO Dec 25, 2018 21:10
[2018-12-25 21:15] VITALS: BP 136/60
== END 2018-12-25 21:20 | disposition home or self-care (01) ==
LOC: ER 19:16
DX: N20.0 Calculus of kidney (principal); R10.32 Left lower quadrant pain; R10.31 Right lower quadrant pain; E11.9 Type 2 diabetes mellitus without complications; E78.00 Pure hypercholesterolemia, unspecified; I10 Essential (primary) hypertension
CPT/HCPCS: 36415; 74176; 80053; 81001; 83690; 85025; 87086; 96374; 96375; 99285; J2405; J3010; J7030

== ENCOUNTER 2019-02-09 13:53 | Observation (INO) | payer SELFPAY ==
[~2019-02-09] VITALS: Ht 160 cm; Wt 111.1 kg
[~2019-02-09 13:53] MED LIST changes: +BP med PO; +LISI10TA2 PO; +METF500T9 PO; +MULT1TAB52 PO; +Metformin; +ONDA4TAB7 PO; +SULF1TAB24 PO; +TRAM50TA PO
[2019-02-09] MEDS ORDERED: ONDANSETRON PF 4 MG/2 ML VIAL. IV ONE (15:30)
[2019-02-09] MEDS ORDERED: fentaNYL PF VIAL 100 MCG/2 ML VIAL IV ONE (15:30)
[2019-02-09] MEDS ORDERED: IV NORMAL SALINE 1000ML BAG 1,000 ML IV ONE (15:30)
--- NOTE | 2019-02-09 15:41 | PHYS DOC ---
Past Medical History Past Medical History: Diabetes-Type II, High Cholesterol, Hypertension, Pancreatitis Past Surgical History: No Surgical History Alcohol Use: None Drug Use: None Adult General Chief Complaint Chief Complaint: ABDOMINAL PAIN HPI HPI Patient is a 53 year old female who presents with abdominal pain has been ongoing since last Tuesday. I am familiar with this patient I saw her on January 31 and admitted her to the hospital. The patient states that she left the hospital ama due to her job. She states the pain is continued and that she is now able to stay in the hospital and wants to go back in the hospital try to resolve her issues. It's her pain is 10 out of 10 in severity. Review of Systems Review of Systems Constitutional: Denies fever or chills [] Eyes: Denies change in visual acuity, redness, or eye pain [] HENT: Denies nasal congestion or sore throat [] Respiratory: Denies cough or shortness of breath [] Cardiovascular: No additional information not addressed in HPI [] GI: Reports abdominal pain, Denies nausea, vomiting, bloody stools or diarrhea [] : Denies dysuria or hematuria [] Musculoskeletal: Denies back pain or joint pain [] Integument: Denies rash or skin lesions [] Neurologic: Denies headache, focal weakness or sensory changes [] Endocrine: Denies polyuria or polydipsia [] Complete systems were reviewed and found to be within normal limits, except as documented in this note. Current Medications Current Medications Current Medications Medications (Trade) Dose Ordered Sig/Matthew Start Time Stop Time Status Last Admin Dose Admin Fentanyl Citrate (Fentanyl 2ml Vial) 50 mcg 1X ONCE 02/09/19 15:30 02/09/19 15:31 DC 02/09/19 15:38 50 MCG Multi-Ingredient Mouthwash/Gargle (Gi Cocktail) 20 ml 1X ONCE 02/09/19 17:15 02/09/19 17:16 DC 02/09/19 17:19 20 ML Ondansetron HCl (Zofran) 4 mg 1X ONCE 02/09/19 15:30 02/09/19 15:31 DC 02/09/19 15:37 4 MG Sodium Chloride 1,000 ml @ 1,000 mls/hr 1X ONCE 02/09/19 15:30 02/09/19 16:29 DC 02/09/19 15:38 1,000 MLS/HR Allergies Allergies Allergies Coded Allergies Type Severity Reaction Last Updated Verified No Known Drug Allergies 07/05/18 No Physical Exam Physical Exam Constitutional: Well developed, well nourished, no acute distress, non-toxic appearance. [] HENT: Normocephalic, atraumatic, bilateral external ears normal, oropharynx moist, no oral exudates, nose normal. [] Eyes: PERRLA, EOMI, conjunctiva normal, no discharge. [] Neck: Normal range of motion, no tenderness, supple, no stridor. [] Cardiovascular:Heart rate regular rhythm, no murmur [] Lungs & Thorax: Bilateral breath sounds clear to auscultation [] Abdomen: Bowel sounds normal, soft, tenderness diffusely, no masses, no pulsatile masses. [] Skin: Warm, dry, no erythema, no rash. [] Back: No tenderness, no CVA tenderness. [] Extremities: No tenderness, no cyanosis, no clubbing, ROM intact, no edema. [] Neurologic: Alert and oriented X 3, normal motor function, normal sensory function, no focal deficits noted. [] Psychologic: Affect normal, judgement normal, mood normal. [] Current Patient Data Vital Signs Vital Signs Date Time Temp Pulse Resp B/P (MAP) Pulse Ox O2 Delivery O2 Flow Rate FiO2 02/09/19 15:38 Room Air 02/09/19 14:30 98.4 76 18 146/66 (92) 98 98.4 Lab Values Laboratory Tests Test 02/09/19 16:10 White Blood Count 9.3 x10^3/uL (4.0-11.0) Red Blood Count 4.46 x10^6/uL (3.50-5.40) Hemoglobin 13.2 g/dL (12.0-15.5) Hematocrit 39.4 % (36.0-47.0) Mean Corpuscular Volume 88 fL (79-100) Mean Corpuscular Hemoglobin 30 pg (25-35) Mean Corpuscular Hemoglobin Concent 34 g/dL (31-37) Red Cell Distribution Width 13.7 % (11.5-14.5) Platelet Count 179 x10^3/uL (140-400) Neutrophils (%) (Auto) 63 % (31-73) Lymphocytes (%) (Auto) 25 % (24-48) Monocytes (%) (Auto) 10 % (0-9) H Eosinophils (%) (Auto) 2 % (0-3) Basophils (%) (Auto) 1 % (0-3) Neutrophils # (Auto) 5.8 x10^3/uL (1.8-7.7) Lymphocytes # (Auto) 2.3 x10^3/uL (1.0-4.8) Monocytes # (Auto) 0.9 x10^3/uL (0.0-1.1) Eosinophils # (Auto) 0.1 x10^3/uL (0.0-0.7) Basophils # (Auto) 0.1 x10^3/uL (0.0-0.2) Sodium Level 140 mmol/L (136-145) Potassium Level 4.1 mmol/L (3.5-5.1) Chloride Level 102 mmol/L (98-107) Carbon Dioxide Level 30 mmol/L (21-32) Anion Gap 8 (6-14) Blood Urea Nitrogen 17 mg/dL (7-20) Creatinine 0.8 mg/dL (0.6-1.0) Estimated GFR (Cockcroft-Gault) 90.4 BUN/Creatinine Ratio 21 (6-20) H Glucose Level 95 mg/dL (70-99) Calcium Level 8.8 mg/dL (8.5-10.1) Total Bilirubin 0.4 mg/dL (0.2-1.0) Aspartate Amino Transferase (AST) 34 U/L (15-37) Alanine Aminotransferase (ALT) 47 U/L (14-59) Alkaline Phosphatase 76 U/L (46-116) Total Protein 7.7 g/dL (6.4-8.2) Albumin 3.1 g/dL (3.4-5.0) L Albumin/Globulin Ratio 0.7 (1.0-1.7) L Lipase 176 U/L (73-393) Laboratory Tests 02/09/19 16:10 Laboratory Tests 02/09/19 16:10 EKG EKG [] Radiology/Procedures Radiology/Procedures [] Course & Med Decision Making Course & Med Decision Making Pertinent Labs and Imaging studies reviewed. (See chart for details) Will redraw labs, and give medication. Discussed with patient how GI saw her in her recent admission and recommended PPI course. Discussed prescribing medicine and trying outpatient. Patient states she would rather go inpatient for pain control. Will page hospitalist. Discussed with Dr. Murphy who agreed to admission. Went and discussed admission with patient again to discuss how this would be likely a 23 hr observation and that we could try PPI's outpatient. Patient was insistent she is having trouble eating and sleeping and wants to go in hospital. Patient did state that the GI cocktail is helping but she still is having pain. Will admit for observation. Dragon Disclaimer Dragon Disclaimer This electronic medical record was generated, in whole or in part, using a voice recognition dictation system. Departure Departure Impression: Primary Impression: Intractable abdominal pain Disposition: ADMITTED INPATIENT Admitting Physician: BRENDEN Condition: STABLE Referrals: UNKNOWN PCP NAME (PCP) ILDA VALENZUELA APRN Feb 09, 2019 15:40
[2019-02-09 16:20] LABS: BASO # 0.1 x10^3/uL (0.0-0.2); BASO % 1 % (0-3); EOS # 0.1 x10^3/uL (0.0-0.7); EOS % 2 % (0-3); HEMATOCRIT 39.4 % (36.0-47.0); HEMOGLOBIN 13.2 g/dL (12.0-15.5); LYMPH # 2.3 x10^3/uL (1.0-4.8); LYMPH % 25 % (24-48); MEAN CORPUSCULAR HEMOGLOBIN 30 pg (25-35); MEAN CORPUSCULAR HGB CONC 34 g/dL (31-37); MEAN CORPUSCULAR VOLUME 88 fL (79-100); MONO # 0.9 x10^3/uL (0.0-1.1); MONO % 10 % (0-9); NEUT # 5.8 x10^3/uL (1.8-7.7); NEUT % 63 % (31-73); PLATELET COUNT 179 x10^3/uL (140-400); RED BLOOD COUNT 4.46 x10^6/uL (3.50-5.40); RED CELL DISTRIBUTION WIDTH 13.7 % (11.5-14.5); WHITE BLOOD COUNT 9.3 x10^3/uL (4.0-11.0)
[2019-02-09 16:32] LABS: CALCIUM 8.8 mg/dL (8.5-10.1); CREATININE 0.8 mg/dL (0.6-1.0); GFR 90.4; POTASSIUM 4.1 mmol/L (3.5-5.1)
[2019-02-09 16:38] LABS: ALBUMIN 3.1 g/dL (3.4-5.0); ALBUMIN/GLOBULIN RATIO 0.7 (1.0-1.7); TOTAL BILIRUBIN 0.4 mg/dL (0.2-1.0); TOTAL PROTEIN 7.7 g/dL (6.4-8.2)
[2019-02-09] MEDS ORDERED: LIDO:MAALOX 1:1 20 ML SINGLE DOSE. SWSW ONE (17:15)
[2019-02-09] MEDS ORDERED: ONDANSETRON PF 4 MG/2 ML VIAL. IV PRN (17:30)
[2019-02-09] MEDS ORDERED: PANTOPRAZOLE 40 MG TABLET.DR. PO ONE (18:30)
[2019-02-09 18:39] VITALS: BP 103/65
--- NOTE | 2019-02-09 20:00 | NUR ---
The patient, ROSEANNA JOHNSON, 53 y/o, F admitted by IHSAN CARR MD, was given written information regarding hospital policies, unit procedures and contact persons. Valuables were checked and noted. Patient's belongings left with patient at this time. Patient denies pain at this time. Patient is currently laying in bed eating a turkey box lunch and drinking apple juice while watching TV. This RN will continue to monitor the patient at this time.
[2019-02-09] MEDS: fentaNYL PF VIAL 100 MCG/2 ML VIAL IV PRN ×2 (20:26→23:57)
[2019-02-09 23:00] VITALS: BP 119/62
[2019-02-10 03:00] VITALS: BP 110/61
[2019-02-10] MEDS: fentaNYL PF VIAL 100 MCG/2 ML VIAL IV PRN (03:33)
[2019-02-10] MEDS ORDERED: PANTOPRAZOLE 40 MG TABLET.DR. PO SCH (07:30)
[2019-02-10 07:59] VITALS: BP 115/64
[2019-02-10] MEDS ORDERED: oxyCODONE/APAP 5/325 1 TAB TABLET PO PRN (08:15)
[2019-02-10] MEDS ORDERED: fentaNYL PF VIAL 100 MCG/2 ML VIAL IV PRN (08:15)
[2019-02-10] MEDS ORDERED: DEXTROSE 50% 25 GM / 50ML DISP.SYRIN. IV PRN (08:15)
[2019-02-10] MEDS ORDERED: ONDANSETRON PF 4 MG/2 ML VIAL. IV PRN (08:15)
[2019-02-10 08:30] VITALS: BP 146/70
[2019-02-10 08:36] VITALS: BP 110/61
[2019-02-10] MEDS ORDERED: MULTIVITAMIN with MINERAL TABLET. PO SCH (09:00)
[2019-02-10] MEDS ORDERED: LISINOPRIL 10 MG TABLET PO SCH (09:00)
[2019-02-10] MEDS ORDERED: ONDA4TAB7 PO (09:08)
[2019-02-10] MEDS ORDERED: DICY10CA3 PO (09:08)
[2019-02-10] MEDS ORDERED: PANT20TA2 PO (09:08)
[2019-02-10] MEDS ORDERED: HYDR-3164 PO (09:08)
--- NOTE | 2019-02-10 09:13 | PDOC1 ---
History and Physical Date of Admission Date of Admission DATE: 02/10/19 TIME: 09:08 Identification/Chief Complaint Chief Complaint abd pain Source Source: Caregiver, Chart review, Patient History of Present Illness History of Present Illness 43-year-old -Ira[place] female, BMI 44, abdominal pain. CAT scan 1 week ago normal. Blood work normal. Likes narcotics. As per ER Stewart.Luz: Patient is a 53 year old female who presents with abdominal pain has been ongoing since last Tuesday. I am familiar with this patient I saw her on January 31 and admitted her to the hospital. The patient states that she left the hospital ama due to her job. She states the pain is continued and that she is now able to stay in the hospital and wants to go back in the hospital try to resolve her issues. It's her pain is 10 out of 10 in severity.. ISEE HER NOW tuesday, better, ID did tell her as OP GI and OP PCP- she understands - TRIAL of PPI< bentyl and zofran and she requests pain meds SHe takes only 3 meds at home, mostly for BP She did fall in shower today at hospital, hit the elbow but no injuries Past Medical History Cardiovascular: HTN, Hyperlipidemia Pulmonary: COPD Heme/Onc: No pertinent hx Hepatobiliary: Cirrhosis, Hep A/B/C Psych: Addictions Endocrine: Diabetes Past Surgical History Past Surgical History: No pertinent history Family History Family History: No Significant, Diabetes, Hypertension Family History: Parent, Other Social History Smoke: No ALCOHOL: none Drugs: None Current Problem List Problem List Problems Medical Problems: (1) Intractable abdominal pain Status: Acute Current Medications Current Medications Current Medications Fentanyl Citrate (Fentanyl 2ml Vial) 50 mcg 1X ONCE IV Last administered on 02/09/19at 15:38; Start 02/09/19 at 15:30; Stop 02/09/19 at 15:31; Status DC Ondansetron HCl (Zofran) 4 mg 1X ONCE IV Last administered on 02/09/19at 15:37; Start 02/09/19 at 15:30; Stop 02/09/19 at 15:31; Status DC Sodium Chloride 1,000 ml @ 1,000 mls/hr 1X ONCE IV Last administered on 02/09/19at 15:38; Start 02/09/19 at 15:30; Stop 02/09/19 at 16:29; Status DC Multi-Ingredient Mouthwash/Gargle (Gi Cocktail) 20 ml 1X ONCE SWSW Last administered on 02/09/19at 17:19; Start 02/09/19 at 17:15; Stop 02/09/19 at 17:16; Status DC Ondansetron HCl (Zofran) 4 mg PRN Q8HRS PRN IV NAUSEA/VOMITING; Start 02/09/19 at 17:30; Stop 02/10/19 at 08:10; Status DC Fentanyl Citrate (Fentanyl 2ml Vial) 50 mcg PRN Q1HR PRN IV PAIN Last a dministered on 02/10/19at 03:33; Start 02/09/19 at 17:30; Stop 02/10/19 at 08:10; Status DC Pantoprazole Sodium (Protonix) 40 mg DAILYAC PO Last administered on 02/10/19at 08:34; Start 02/10/19 at 07:30 Pantoprazole Sodium (Protonix) 40 mg 1X ONCE PO Last administered on 02/09/19at 19:02; Start 02/09/19 at 18:30; Stop 02/09/19 at 18:31; Status DC Fentanyl Citrate (Fentanyl 2ml Vial) 50 mcg PRN Q2HR PRN IV PAIN; Start 02/10/19 at 08:15 Ondansetron HCl (Zofran) 4 mg PRN Q6HRS PRN IV NAUSEA/VOMITING Last a dministered on 02/10/19at 08:34; Start 02/10/19 at 08:15 Oxycodone/ Acetaminophen (Percocet 5/325) 1 tab PRN Q4HRS PRN PO PAIN Last administered on 02/10/19at 08:35; Start 02/10/19 at 08:15 Lisinopril (Prinivil) 10 mg DAILY PO Last administered on 02/10/19at 08:36; Start 02/10/19 at 09:00 Metformin HCl (Glucophage Xr) 500 mg DAILYWSUP PO ; Start 02/10/19 at 17:00 Multivitamins (Thera M Plus) 1 tab DAILY PO Last administered on 02/10/19at 08:35; Start 02/10/19 at 09:00 Insulin Human Lispro (HumaLOG) 0-9 UNITS TIDWMEALS SQ ; Start 02/10/19 at 12:00 Dextrose (Dextrose 50%-Water Syringe) 12.5 gm PRN Q15MIN PRN IV SEE COMMENTS; Start 02/10/19 at 08:15 Active Scripts Active Zofran (Ondansetron Hcl) 4 Mg Tablet 1 Tab PO Q6HRS [place] 5-325 Tablet (Acetaminophen/Hydrocodone Bitart) 1 Each Tablet 1 Tab PO TID Dicyclomine Hcl 10 Mg Capsule 1 Cap PO TID Protonix (Pantoprazole Sodium) 20 Mg Tablet.dr 1 Tab PO DAILY Reported Metformin Hcl Er (Metformin Hcl) 500 Mg Tab.er.24h 500 Mg PO DAILYBFRSUP Lisinopril 10 Mg Tablet 1 Tab PO DAILY Multivitamins (Multivitamin) 1 Each Tablet 1 Tab PO DAILY Allergies Allergies: Coded Allergies: No Known Drug Allergies (Unverified , 07/05/18) ROS Review of System A 14 point ROS was completed with the following noted as positive: Other systems reviewed and negative. \CONSTITUTIONAL: No fever or chills EYES: No recent changes SKIN: No rash or itching CARDIOVASCULAR: No chest pain, syncope, palpitations, or edema RESPIRATORY: No SOB or cough GASTROINTESTINAL: NEUROLOGICAL: No headaches or weakness ENDOCRINE: No cold or heat intolerance GENITOURINARY: No urgency or frequency of urination MUSCULOSKELETAL: No back pain or joint pain LYMPHATICS: No enlarged lymph nodes PSYCHIATRIC: No anxiety or depression Physical Exam General: Alert, Oriented X3, Cooperative, No acute distress HEENT: Atraumatic, PERRLA, EOMI Lungs: Clear to auscultation, Normal air movement Heart: S1S2, RRR, no thrills, no rubs, no gallops Cardiovascular: S1, S2 Breasts: Normal, Rt breast nml w/o mass, Lt breast nml w/o mass, Nipples normal Rectal Exam: not examined PELVIC: Nml ext genitalia Extremities: No clubbing, No cyanosis, No edema, Normal pulses, No tenderness/swelling Skin: No rashes, No breakdown, No significant lesion Neuro: Normal gait, Normal speech, Strength at 5/5 X4 ext, Normal tone, Sensation intact, Cranial nerves 3-12 NL, Reflexes 2+ Psych/Mental Status: Mental status NL, Mood NL Vitals Vitals Vital Signs Date Time Temp Pulse Resp B/P (MAP) Pulse Ox O2 Delivery O2 Flow Rate FiO2 02/10/19 08:36 67 110/61 02/10/19 03:33 100 Room Air 02/10/19 03:00 98.5 18 98.5 Labs Labs Laboratory Tests Test 02/09/19 16:10 White Blood Count 9.3 x10^3/uL (4.0-11.0) Red Blood Count 4.46 x10^6/uL (3.50-5.40) Hemoglobin 13.2 g/dL (12.0-15.5) Hematocrit 39.4 % (36.0-47.0) Mean Corpuscular Volume 88 fL (79-100) Mean Corpuscular Hemoglobin 30 pg (25-35) Mean Corpuscular Hemoglobin Concent 34 g/dL (31-37) Red Cell Distribution Width 13.7 % (11.5-14.5) Platelet Count 179 x10^3/uL (140-400) Neutrophils (%) (Auto) 63 % (31-73) Lymphocytes (%) (Auto) 25 % (24-48) Monocytes (%) (Auto) 10 % (0-9) Eosinophils (%) (Auto) 2 % (0-3) Basophils (%) (Auto) 1 % (0-3) Neutrophils # (Auto) 5.8 x10^3/uL (1.8-7.7) Lymphocytes # (Auto) 2.3 x10^3/uL (1.0-4.8) Monocytes # (Auto) 0.9 x10^3/uL (0.0-1.1) Eosinophils # (Auto) 0.1 x10^3/uL (0.0-0.7) Basophils # (Auto) 0.1 x10^3/uL (0.0-0.2) Sodium Level 140 mmol/L (136-145) Potassium Level 4.1 mmol/L (3.5-5.1) Chloride Level 102 mmol/L (98-107) Carbon Dioxide Level 30 mmol/L (21-32) Anion Gap 8 (6-14) Blood Urea Nitrogen 17 mg/dL (7-20) Creatinine 0.8 mg/dL (0.6-1.0) Estimated GFR (Cockcroft-Gault) 90.4 BUN/Creatinine Ratio 21 (6-20) Glucose Level 95 mg/dL (70-99) Calcium Level 8.8 mg/dL (8.5-10.1) Total Bilirubin 0.4 mg/dL (0.2-1.0) Aspartate Amino Transf (AST/SGOT) 34 U/L (15-37) Alanine Aminotransferase (ALT/SGPT) 47 U/L (14-59) Alkaline Phosphatase 76 U/L (46-116) Total Protein 7.7 g/dL (6.4-8.2) Albumin 3.1 g/dL (3.4-5.0) Albumin/Globulin Ratio 0.7 (1.0-1.7) Lipase 176 U/L (73-393) Laboratory Tests Test 02/09/19 16:10 White Blood Count 9.3 x10^3/uL (4.0-11.0) Red Blood Count 4.46 x10^6/uL (3.50-5.40) Hemoglobin 13.2 g/dL (12.0-15.5) Hematocrit 39.4 % (36.0-47.0) Mean Corpuscular Volume 88 fL (79-100) Mean Corpuscular Hemoglobin 30 pg (25-35) Mean Corpuscular Hemoglobin Concent 34 g/dL (31-37) Red Cell Distribution Width 13.7 % (11.5-14.5) Platelet Count 179 x10^3/uL (140-400) Neutrophils (%) (Auto) 63 % (31-73) Lymphocytes (%) (Auto) 25 % (24-48) Monocytes (%) (Auto) 10 % (0-9) Eosinophils (%) (Auto) 2 % (0-3) Basophils (%) (Auto) 1 % (0-3) Neutrophils # (Auto) 5.8 x10^3/uL (1.8-7.7) Lymphocytes # (Auto) 2.3 x10^3/uL (1.0-4.8) Monocytes # (Auto) 0.9 x10^3/uL (0.0-1.1) Eosinophils # (Auto) 0.1 x10^3/uL (0.0-0.7) Basophils # (Auto) 0.1 x10^3/uL (0.0-0.2) Sodium Level 140 mmol/L (136-145) Potassium Level 4.1 mmol/L (3.5-5.1) Chloride Level 102 mmol/L (98-107) Carbon Dioxide Level 30 mmol/L (21-32) Anion Gap 8 (6-14) Blood Urea Nitrogen 17 mg/dL (7-20) Creatinine 0.8 mg/dL (0.6-1.0) Estimated GFR (Cockcroft-Gault) 90.4 BUN/Creatinine Ratio 21 (6-20) Glucose Level 95 mg/dL (70-99) Calcium Level 8.8 mg/dL (8.5-10.1) Total Bilirubin 0.4 mg/dL (0.2-1.0) Aspartate Amino Transf (AST/SGOT) 34 U/L (15-37) Alanine Aminotransferase (ALT/SGPT) 47 U/L (14-59) Alkaline Phosphatase 76 U/L (46-116) Total Protein 7.7 g/dL (6.4-8.2) Albumin 3.1 g/dL (3.4-5.0) Albumin/Globulin Ratio 0.7 (1.0-1.7) Lipase 176 U/L (73-393) VTE Prophylaxis Ordered VTE Prophylaxis Devices: Yes VTE Pharmacological Prophylaxi: Yes Assessment/Plan Assessment/Plan nOnE specific abdominal pain differences include GERD, nonulcer dyspepsia pud disease-controlled here, outpatient PCP or outpatient GI referral and I have given NAMES Narcotic tolerance Obesity BMI 44 Hypertension, controlled Non injury fall Plan: as above home today with meds GI as outpatient, PCP can arrange OBS Dw TITA SOLOMON MD Feb 10, 2019 09:13
--- NOTE | 2019-02-10 09:14 | PDOC3 ---
Discharge Summary Visit Information Date of Admission: Feb 09, 2019 Date of Discharge: Feb 10, 2019 Admitting Diagnosis Comment: NONspecific abdominal pain with negative blood work and CAT scan-differentials include GERD, nonulcer dyspepsia PUD Obesity Hypertension controlled Narcotic tolerance Noninjury fall Final Diagnosis Problems Medical Problems: (1) Intractable abdominal pain Status: Acute Brief Hospital Course Allergies Allergies Coded Allergies Type Severity Reaction Last Updated Verified No Known Drug Allergies 07/05/18 No Vital Signs Vital Signs Date Time Temp Pulse Resp B/P (MAP) Pulse Ox O2 Delivery O2 Flow Rate FiO2 02/10/19 08:36 67 110/61 02/10/19 03:33 100 Room Air 02/10/19 03:00 98.5 18 98.5 Lab Results Laboratory Tests Test 02/09/19 16:10 White Blood Count 9.3 x10^3/uL (4.0-11.0) Red Blood Count 4.46 x10^6/uL (3.50-5.40) Hemoglobin 13.2 g/dL (12.0-15.5) Hematocrit 39.4 % (36.0-47.0) Mean Corpuscular Volume 88 fL (79-100) Mean Corpuscular Hemoglobin 30 pg (25-35) Mean Corpuscular Hemoglobin Concent 34 g/dL (31-37) Red Cell Distribution Width 13.7 % (11.5-14.5) Platelet Count 179 x10^3/uL (140-400) Neutrophils (%) (Auto) 63 % (31-73) Lymphocytes (%) (Auto) 25 % (24-48) Monocytes (%) (Auto) 10 % (0-9) Eosinophils (%) (Auto) 2 % (0-3) Basophils (%) (Auto) 1 % (0-3) Neutrophils # (Auto) 5.8 x10^3/uL (1.8-7.7) Lymphocytes # (Auto) 2.3 x10^3/uL (1.0-4.8) Monocytes # (Auto) 0.9 x10^3/uL (0.0-1.1) Eosinophils # (Auto) 0.1 x10^3/uL (0.0-0.7) Basophils # (Auto) 0.1 x10^3/uL (0.0-0.2) Sodium Level 140 mmol/L (136-145) Potassium Level 4.1 mmol/L (3.5-5.1) Chloride Level 102 mmol/L (98-107) Carbon Dioxide Level 30 mmol/L (21-32) Anion Gap 8 (6-14) Blood Urea Nitrogen 17 mg/dL (7-20) Creatinine 0.8 mg/dL (0.6-1.0) Estimated GFR (Cockcroft-Gault) 90.4 BUN/Creatinine Ratio 21 (6-20) Glucose Level 95 mg/dL (70-99) Calcium Level 8.8 mg/dL (8.5-10.1) Total Bilirubin 0.4 mg/dL (0.2-1.0) Aspartate Amino Transf (AST/SGOT) 34 U/L (15-37) Alanine Aminotransferase (ALT/SGPT) 47 U/L (14-59) Alkaline Phosphatase 76 U/L (46-116) Total Protein 7.7 g/dL (6.4-8.2) Albumin 3.1 g/dL (3.4-5.0) Albumin/Globulin Ratio 0.7 (1.0-1.7) Lipase 176 U/L (73-393) Laboratory Tests Test 02/09/19 16:10 White Blood Count 9.3 x10^3/uL (4.0-11.0) Red Blood Count 4.46 x10^6/uL (3.50-5.40) Hemoglobin 13.2 g/dL (12.0-15.5) Hematocrit 39.4 % (36.0-47.0) Mean Corpuscular Volume 88 fL (79-100) Mean Corpuscular Hemoglobin 30 pg (25-35) Mean Corpuscular Hemoglobin Concent 34 g/dL (31-37) Red Cell Distribution Width 13.7 % (11.5-14.5) Platelet Count 179 x10^3/uL (140-400) Neutrophils (%) (Auto) 63 % (31-73) Lymphocytes (%) (Auto) 25 % (24-48) Monocytes (%) (Auto) 10 % (0-9) Eosinophils (%) (Auto) 2 % (0-3) Basophils (%) (Auto) 1 % (0-3) Neutrophils # (Auto) 5.8 x10^3/uL (1.8-7.7) Lymphocytes # (Auto) 2.3 x10^3/uL (1.0-4.8) Monocytes # (Auto) 0.9 x10^3/uL (0.0-1.1) Eosinophils # (Auto) 0.1 x10^3/uL (0.0-0.7) Basophils # (Auto) 0.1 x10^3/uL (0.0-0.2) Sodium Level 140 mmol/L (136-145) Potassium Level 4.1 mmol/L (3.5-5.1) Chloride Level 102 mmol/L (98-107) Carbon Dioxide Level 30 mmol/L (21-32) Anion Gap 8 (6-14) Blood Urea Nitrogen 17 mg/dL (7-20) Creatinine 0.8 mg/dL (0.6-1.0) Estimated GFR (Cockcroft-Gault) 90.4 BUN/Creatinine Ratio 21 (6-20) Glucose Level 95 mg/dL (70-99) Calcium Level 8.8 mg/dL (8.5-10.1) Total Bilirubin 0.4 mg/dL (0.2-1.0) Aspartate Amino Transf (AST/SGOT) 34 U/L (15-37) Alanine Aminotransferase (ALT/SGPT) 47 U/L (14-59) Alkaline Phosphatase 76 U/L (46-116) Total Protein 7.7 g/dL (6.4-8.2) Albumin 3.1 g/dL (3.4-5.0) Albumin/Globulin Ratio 0.7 (1.0-1.7) Lipase 176 U/L (73-393) Brief Hospital Course Ms. Oneill is a 53 old [sex] who presented with [ ] 43-year-old -[place] female, BMI 44, abdominal pain. CAT scan 1 week ago normal. Blood work normal. Likes narcotics. As per ER M.D.: Patient is a 53 year old female who presents with abdominal pain has been ongoing since last Tuesday. I am familiar with this patient I saw her on January 31 and admitted her to the hospital. The patient states that she left the hospital ama due to her job. She states the pain is continued and that she is now able to stay in the hospital and wants to go back in the hospital try to resolve her issues. It's her pain is 10 out of 10 in severity.. ISEE HER NOW tuesday, better, ID did tell her as OP GI and OP PCP- she understands - TRIAL of PPI< bentyl and zofran and she requests pain meds SHe takes only 3 meds at home, mostly for BP She did fall in shower today at hospital, hit the elbow but no injuries Discharge Information Condition at Discharge: Improved, Stable Disposition/Orders: D/C to Home Scheduled Dicyclomine Hcl (Dicyclomine Hcl) 10 Mg Capsule, 1 CAP PO TID for abd pain, #60 Ref 11 Prescribed by: TITA BANKS on 02/10/19 0908 Hydrocodone/Apap 5-325 ([place] 5-325 Tablet) 1 Each Tablet, 1 TAB PO TID for abd pain, #20 Prescribed by: TITA BANKS on 02/10/19 0908 Lisinopril (Lisinopril) 10 Mg Tablet, 1 TAB PO DAILY for HTN, #30 Ref 5 (Reported) Entered as Reported by: PAULINE COE on 02/01/19 0632 Last Taken: Unknown Dose on 02/09/19 Last Action: Continued on 02/10/19 08 by TITA BANKS Metformin Hcl (Metformin Hcl Er) 500 Mg Tab.er.24h, 500 MG PO DAILYBFRSUP for A NTI-DIABETIC, Ref 0 (Reported) Entered as Reported by: PAULINE COE on 02/01/19 0632 Last Taken: Unknown Dose on 02/08/19 Last Action: Converted on 02/10/19 08 by TITA BANKS Multivitamin (Multivitamins) 1 Each Tablet, 1 TAB PO DAILY for supplement, #90 Ref 3 (Reported) Entered as Reported by: PAULINE COE on 02/01/19 0232 Last Taken: Unknown Dose on 02/09/19 Last Action: Converted on 02/10/19808 by TITA BANKS Ondansetron Hcl (Zofran) 4 Mg Tablet, 1 TAB PO Q6HRS for nausea, #30 Prescribed by: TITA BANKS on 02/10/19 0908 Pantoprazole Sodium (Protonix) 20 Mg Tablet.dr, 1 TAB PO DAILY for gerd, #30 Prescribed by: TTIA BANKS on 02/10/19 0908 TITA BANKS MD Feb 10, 2019 09:14
--- NOTE | 2019-02-10 11:00 | NUR ---
Around 0830 pt. was up in the shower. Housekeeping was in the room cleaning and yelled out that they thought they heard the pt. fall. This nurse heard housekeeping and ran to pt. room. Pt. was sitting on shower floor with legs stretched out in a V shape and her back to the shower chair. Pt. stated "I was trying to stand to rinse the soap off my body and the chair slid out from under me. Luckily I was already close to the ground so it wasn't as bad as it could have been." This nurse assessed pt. skin, helped pt. up and asked pt. if she hurt anywhere. Pt. stated her "left elbow hurts a little. I think I hit it on something but I don't know what." This nurse assessed elbow. No latif or abrasion noted. This nurse laid down towels r/t water leaking all over bathroom floor and stayed with pt. while she finished rinsing off. This nurse had PRODUCT DIRECTOR help pt. out of shower and back to bed. Vital signs charted. RN notified. notified. No new orders. Will continue to monitor.
--- NOTE | 2019-02-10 11:50 | NUR ---
Patient was discharged from the unit at 1130. Patient was escorted from the unit in a wheelchair by staff down to a private vehicle. She was discharged with her belongings and discharge paperwork. Paperwork was discussed with the patient prior to discharge and she had no questions or concerns.
[2019-02-10] MEDS ORDERED: INSULIN LISPRO 300 UNITS/3 ML INSULN.PEN. SQ SCH (12:00)
[2019-02-10] MEDS ORDERED: metFORMIN XR 500 MG TAB.ER.24H PO SCH (17:00)
== END 2019-02-10 11:30 | disposition home or self-care (01) ==
LOC: ER 13:53 → 5 SOUTH 17:04
PROVIDERS: ADMIT Internal Medicine; ATTEND Internal Medicine
DX: R10.9 Unspecified abdominal pain (principal); E11.9 Type 2 diabetes mellitus without complications; E78.00 Pure hypercholesterolemia, unspecified; I10 Essential (primary) hypertension; E66.9 Obesity, unspecified; Z68.41 Body mass index [BMI] 40.0-44.9, adult; E78.5 Hyperlipidemia, unspecified; J44.9 Chronic obstructive pulmonary disease, unspecified; K74.60 Unspecified cirrhosis of liver; K21.9 Gastro-esophageal reflux disease without esophagitis; K27.9 Peptic ulcer, site unspecified, unspecified as acute or chronic, without hemorrhage or perforation; Z79.84 Long term (current) use of oral hypoglycemic drugs; Z79.899 Other long term (current) drug therapy
CPT/HCPCS: 36415; 80053; 83690; 85025; 96374; 96375; 96376; 99284; G0378; J1815; J2405; J3010; J7030; G0379

== ENCOUNTER 2020-06-18 17:31 | Emergency (ER) | payer BC ==
[~2020-06-18] VITALS: Ht 161.3 cm; Wt 90.0 kg
[~2020-06-18 17:31] MED LIST changes: +DICY10CA3 PO; +HYDR-3164 PO; +METF-658 PO; -METF500T9 PO; +MULT-445 PO; -MULT1TAB52 PO; +PANT20TA2 PO
[2020-06-18 18:03] VITALS: BP 131/66
[2020-06-18 18:17] LABS: BILIRUBIN,URINE NEGATIVE (NEG); CLARITY,URINE CLOUDY; COLOR,URINE YELLOW; NITRITE,URINE NEGATIVE (NEG); PH,URINE 7.5 (<5.0-8.0); PROTEIN,URINE NEGATIVE (NEG-TRACE)
--- NOTE | 2020-06-18 18:28 | PHYS DOC ---
Past Medical History Past Medical History: Diabetes-Type II, High Cholesterol, Hypertension, P ancreatitis (YOSEPH OROZCO APRN) Past Surgical History: No Surgical History (YOSEPH OROZCO APRN) Smoking Status: Current Every Day Smoker Alcohol Use: None Drug Use: None (YOSEPH OROZCO APRN) General Adult EDM: Chief Complaint: LOWER BACK PAIN OR INJURY HPI: HPI: Patient is a 55 year old female who presents with left lower back pain that is an ache that comes and goes for the last 3 days. She states that she has not done anything out of ordinary. 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 She states that she has increased pain when she is urinating but after she urinates the pain gets better. Rates her pain a 6 out of 10. Patient denies urinary frequency, burning with urination, headache, dizziness, abdominal pain, nausea, vomiting, diarrhea, fever, vision changes, chest pain, shortness of air. States she is been taking Tylenol for pain. (YOSEPH OROZCO CONSULTING SALES EXECUTIVE) Review of Systems: Review of Systems: Constitutional: Denies fever or chills. [] Eyes: Denies change in visual acuity. [] HENT: Denies nasal congestion or sore throat. [] Respiratory: Denies cough or shortness of breath. [] Cardiovascular: Denies chest pain or edema. [] GI: Denies abdominal pain, nausea, vomiting, bloody stools or diarrhea. [] : Denies dysuria. + Worsening back pain with urination [] Musculoskeletal: + Left lower back pain or joint pain. [] Integument: Denies rash. [] Neurologic: Denies headache, focal weakness or sensory changes. [] Endocrine: Denies polyuria or polydipsia. [] Lymphatic: Denies swollen glands. [] Psychiatric: Denies depression or anxiety. [] (YOSEPH OROZCO APRN) Heart Score: Risk Factors: Risk Factors: DM, Current or recent (<one month) smoker, HTN, HLP, family history of CAD, obesity. Risk Scores: Score 0 - 3: 2.5% MACE over next 6 weeks - Discharge Home Score 4 - 6: 20.3% MACE over next 6 weeks - Admit for Clinical Observation Score 7 - 10: 72.7% MACE over next 6 weeks - Early Invasive Strategies (YOSEPH OROZCO APRN) Allergies: Allergies: Allergies Coded Allergies Type Severity Reaction Last Updated Verified No Known Drug Allergies 07/05/18 No (YOSEPH OROZCO APRN) Physical Exam: PE: Constitutional: Well developed, well nourished, no acute distress, non-toxic appearance. [] HENT: Normocephalic, atraumatic, bilateral external ears normal, oropharynx moist, no oral exudates, nose normal. [] Eyes: PERRLA, EOMI, conjunctiva normal, no discharge. [] Neck: Normal range of motion, no tenderness, supple, no stridor. [] Cardiovascular:Heart rate regular rhythm, no murmur [] Lungs & Thorax: Bilateral breath sounds clear to auscultation [] Abdomen: Bowel sounds normal, soft, no tenderness, no masses, no pulsatile ma sses. [] Skin: Warm, dry, no erythema, no rash. [] Back: No tenderness, no CVA tenderness. [] Extremities: No tenderness, no cyanosis, no clubbing, ROM intact, no edema. [] Neurologic: Alert and oriented X 3, normal motor function, normal sensory function, no focal deficits noted. [] Psychologic: Affect normal, judgement normal, mood normal. [] ++ Normal physical exam (YOSEPH OROZCO APRN) Current Patient Data: Vital Signs: Vital Signs Date Time Temp Pulse Resp B/P (MAP) Pulse Ox O2 Delivery O2 Flow Rate FiO2 06/18/20 17:49 98.4 68 20 131/66 (87) 97 Room Air 98.4 (YOSEPH OROZCO CONSULTING SALES EXECUTIVE) EKG: EKG: [] (YOSEPH OROZCO CONSULTING SALES EXECUTIVE) Radiology/Procedures: Radiology/Procedures: [] ([facility]) Course & Med Decision Making: Course & Med Decision Making Pertinent Labs and Imaging studies reviewed. (See chart for details) See HPI. No CVA tenderness. Abdomen is soft and nontender. Afebrile. Speaks in full complete sentences. Ambulatory with steady gait. Skin pink warm and dry. Urinalysis shows a small UTI. Since she is having urinary symptoms I will treat her with antibiotic. Patient to follow-up with her primary care physician if not getting better. [] (YOSEPH OROZCO APRN) Course & Med Decision Making I have reviewed the PA/HAND I CUTTER's note and Plan of Care. I was available for consultation as needed during the patient's visit in the emergency department. I agree with the clinical impression, plans and disposition. (DENISSE DIAS MD) Dragon Disclaimer: Dragon Disclaimer: This electronic medical record was generated, in whole or in part, using a voice recognition dictation system. (YOSEPH OROZCO APRN) Departure Departure Impression: Primary Impression: UTI (urinary tract infection) Qualified Codes: N39.0 - Urinary tract infection, site not specified Disposition: DC HOME SELF CARE/HOMELESS Condition: STABLE Referrals: UNKNOWN PCP NAME (PCP) Patient Instructions: Urinary Tract Infection Additional Instructions: Follow-up with primary care provider. Use a heating pad also help with pain. Take medication as prescribed and with food. Scripts Hydrocodone/Apap 5-325 ([place] 5-325 TABLET) 1 Each Tablet 1 TAB PO PRN Q6HRS PRN for PAIN, #12 TAB 0 Refills Prov: YOSEPH OROZCO APRN 06/18/20 Cephalexin (KEFLEX) 500 Mg Capsule 1 CAP PO BID for 7 Days, #14 CAP 0 Refills Prov: YOSEPH OROZCO APRN 06/18/20 YOSEPH OROZCO APRN Jun 18, 2020 18:28 DENISSE DIAS MD Jun 18, 2020 19:29
[2020-06-18 18:46] LABS: BACTERIA,URINE MODERATE /HPF (0-FEW)
[2020-06-18 18:48] LABS: RBC,URINE 0 /HPF (0-2)
[2020-06-18] MEDS ORDERED: HYDR-3164 PO (19:07)
[2020-06-18] MEDS ORDERED: CEPH-264 PO (19:07)
[2020-06-18] MEDS ORDERED: ORPHENADRINE CITRATE 60 MG/2 ML VIAL. IM ONE (19:15)
[2020-06-18] MEDS ORDERED: HYDROcodone/APAP 5/325MG 1 TAB TABLET PO ONE (19:15)
== END 2020-06-18 19:25 | disposition home or self-care (01) ==
LOC: ER 17:31
DX: N39.0 Urinary tract infection, site not specified (principal); M54.5 Low back pain; R30.9 Painful micturition, unspecified; E11.9 Type 2 diabetes mellitus without complications; E78.00 Pure hypercholesterolemia, unspecified; I10 Essential (primary) hypertension; K86.1 Other chronic pancreatitis; F17.200 Nicotine dependence, unspecified, uncomplicated
CPT/HCPCS: 81001; 87086; 96372; 99283; J2360

== ENCOUNTER → 2021-11-16 | Emergency (ER) | payer SELFPAY ==
[~2021-11-16] VITALS: Ht 160 cm; Wt 102.3 kg
[~2021-11-16] MED LIST changes: +BISACODYL 5 MG TABLET.DR. PO STA; +CONTRAST GIVEN. MC PRN; +DICY20TA PO; +IOHEXOL 300 MG/ML 100ML VIAL. IV ONE; +LIDO:MAALOX 1:1 20 ML SINGLE DOSE. SWSW ONE; +LISI10TA16 PO; -LISI10TA2 PO; +MAGNESIUM CITRATE 296 ML SOLUTION. PO ONE; +MORPHINE SULFATE 4 MG/ML INJ. IVP ONE; +ONDANSETRON PF 4 MG/2 ML VIAL. IVP ONE; +POLY119P4 PO; +fentaNYL PF VIAL 100 MCG/2 ML VIAL IVP ONE
[2021-11-16 22:00] LABS: BASO % 0 % (0-3); EOS # 0.1 x10^3/uL (0.0-0.7); EOS % 1 % (0-3); HEMATOCRIT 43.8 % (36.0-47.0); HEMOGLOBIN 14.8 g/dL (12.0-15.5); LYMPH # 1.9 x10^3/uL (1.0-4.8); LYMPH % 20 % (24-48); MEAN CORPUSCULAR HEMOGLOBIN 30 pg (25-35); MEAN CORPUSCULAR HGB CONC 34 g/dL (31-37); MEAN CORPUSCULAR VOLUME 89 fL (79-100); MONO # 0.7 x10^3/uL (0.0-1.1); MONO % 8 % (0-9); NEUT # 6.9 x10^3/uL (1.8-7.7); NEUT % 72 % (31-73); PLATELET COUNT 120 x10^3/uL (140-400); RED BLOOD COUNT 4.95 x10^6/uL (3.50-5.40); RED CELL DISTRIBUTION WIDTH 13.8 % (11.5-14.5); WHITE BLOOD COUNT 9.7 x10^3/uL (4.0-11.0)
--- NOTE | 2021-11-16 22:00 | PHYS DOC ---
Past Medical History Past Medical History: Diabetes-Type II, High Cholesterol, Hypertension, P ancreatitis Past Surgical History: No Surgical History Smoking Status: Current Every Day Smoker Alcohol Use: Sober Drug Use: None General Adult EDM: Chief Complaint: ABDOMINAL PAIN HPI: HPI: Patient is a 56 year old female with history of diabetes type 2, hypertension, high cholesterol, pancreatitis, presenting to the ED today complaining of 10 out of 10 generalized abdominal pain, symptoms began a week ago after having fields pizza from [employer]. Patient denies anything exacerbating or relieving her symptoms. She states since Tuesday she has had 6 bottles of Pepto-Bismol and now she is constipated. Last bowel movement was yesterday. She was in the waiting room eating before coming into the room Review of Systems: Review of Systems: Constitutional: Denies fever or chills. [] Eyes: Denies change in visual acuity. [] HENT: Denies nasal congestion or sore throat. [] Respiratory: Denies cough or shortness of breath. [] Cardiovascular: Denies chest pain or edema. [] GI: Reports abdominal pain, denies nausea, vomiting, bloody stools or diarrhea. [] : Denies dysuria. [] Musculoskeletal: Denies back pain or joint pain. [] Integument: Denies rash. [] Neurologic: Denies headache, focal weakness or sensory changes. [] Psychiatric: Denies depression or anxiety. [] Heart Score: C/O Chest Pain: N/A Risk Factors: Risk Factors: DM, Current or recent (<one month) smoker, HTN, HLP, family history of CAD, obesity. Risk Scores: Score 0 - 3: 2.5% MACE over next 6 weeks - Discharge Home Score 4 - 6: 20.3% MACE over next 6 weeks - Admit for Clinical Observation Score 7 - 10: 72.7% MACE over next 6 weeks - Early Invasive Strategies Current Medications: Current Medications Medications (Trade) Dose Ordered Sig/Matthew Start Time Stop Time Status Last Admin Dose Admin Fentanyl Citrate (Fentanyl 2ml Vial) 50 mcg 1X ONCE 11/16/21 21:15 11/16/21 21:16 DC Ondansetron HCl (Zofran) 4 mg 1X ONCE 11/16/21 21:15 11/16/21 21:16 DC Allergies: Allergies: Allergies Coded Allergies Type Severity Reaction Last Updated Verified No Known Drug Allergies 11/16/21 No Physical Exam: PE: Constitutional: Well developed, well nourished, no acute distress, non-toxic appearance. [] HENT: Normocephalic, atraumatic, bilateral external ears normal, oropharynx moist, no oral exudates, nose normal. [] Eyes: PERRLA, EOMI, conjunctiva normal, no discharge. [] Neck: Normal range of motion, no tenderness, supple, no stridor. [] Cardiovascular:Heart rate regular rhythm, no murmur [] Lungs & Thorax: Bilateral breath sounds clear to auscultation [] Abdomen: Rounded abdomen. Bowel sounds normal, soft, diffuse tenderness throughout the abdomen, no obvious point tenderness in the right upper quadrant or right lower quadrant, no masses, no pulsatile masses. [] Skin: Warm, dry, no erythema, no rash. [] Back: No tenderness, no CVA tenderness. [] Extremities: No tenderness, no cyanosis, no clubbing, ROM intact, no edema. [] Neurologic: Alert and oriented X 3, normal motor function, normal sensory function, no focal deficits noted. [] Psychologic: Affect normal, judgement normal, mood normal. [] Current Patient Data: Vital Signs: Vital Signs Date Time Temp Pulse Resp B/P (MAP) Pulse Ox O2 Delivery O2 Flow Rate FiO2 11/16/21 21:00 98.2 84 18 178/101 (126) 100 Room Air 98.2 EKG: EKG: [] Radiology/Procedures: Radiology/Procedures: []PROCEDURE: CT ABD PELV W/ IV CONTRST ONLY Exam: CT of abdomen and pelvis with contrast INDICATION: Abdominal pain, Back pain TECHNIQUE: Sequential axial images through the abdomen and pelvis obtained following the administration of 75 mL of Isovue-370 IV contrast. Sagittal and coronal reformatted images were reconstructed from the axial data and reviewed. Exposure: One or more of the following in the visualized dose reduction t echniques were utilized for this examination: 1. Automated exposure control 2. Adjustment of the MA and/or KV according to patient size 3. Use of iterative of reconstructive technique Comparisons: 01/31/2019 FINDINGS: Heart size is normal. No pericardial effusion. Visualized lung bases are clear. No pleural effusion. Cirrhotic morphology of liver. Spleen, pancreas, gallbladder and adrenals are unremarkable. No perinephric inflammation or hydronephrosis. No renal or ureteral calculi are identified. Bladder is decompressed not well evaluated. Uterus not enlarged. No abnormal adnexal mass. Moderate amount of stool is noted throughout the colon. Appendix is normal. Small bowel is unremarkable. No free intra-abdominal air or fluid. No obstruction. Abdominal aorta has normal course and caliber. Abdominal vasculature is patent. No enlarged intra-abdominal lymph nodes are identified. No suspicious osseous lesions or acute fractures. IMPRESSION: 1. Cirrhotic morphology of liver. 2. No acute process identified in the abdomen or pelvis. Electronically signed by: Nikky Bañuelos MD (11/16/2021 10:37 PM) [facility] DICTATED and SIGNED BY: NIKKY BAÑUELOS MD DATE: 11/16/212233 Course & Med Decision Making: Course & Med Decision Making Pertinent Labs and Imaging studies reviewed. (See chart for details) This a 56-year-old female patient presented to the ED today with generalized abdominal pain that began last week on Tuesday after eating pizza from [employer] CBC with no acute findings, lipase is normal, CMP with glucose of 195, AST 93, ALT 122, ALK 166. UA negative for infection, CT of the abdomen and pelvis negative for any acute findings, noted for constipation and liver cirrhosis morphology-patient has hx of liver cirrhosis Results discussed with patient. Constipation prevention and management discussed. Blood pressure is running in the 170s over low 100s patient is noncompliant with her diabetes and blood pressure medicines. She states her mother advised her to stop taking the medicines months ago. Advised patient to follow-up with the PCP to be put back on her medicines. Randa Disclaimer: Randa Disclaimer: This electronic medical record was generated, in whole or in part, using a voice recognition dictation system. Departure Departure Impression: Primary Impression: Constipation Qualified Codes: K59.00 - Constipation, unspecified Additional Impressions: Hyperglycemia High blood pressure Qualified Codes: I10 - Essential (primary) hypertension Cirrhosis of liver with ascites Qualified Codes: K74.60 - Unspecified cirrhosis of liver; R18.8 - Other ascites Disposition: HOME / SELF CARE / HOMELESS Condition: STABLE Referrals: UNKNOWN PCP NAME (PCP) Follow-up with your primary care doctor in the course of this week Patient Instructions: Constipation, Adult, Hyperglycemia, Hypertension Additional Instructions: You were evaluated in the emergency room and noted to be constipated. Please increase your dietary fiber intake, increase your water intake, avoid taking Pepto-Bismol right now because he already constipated. Take MiraLAX every day to prevent episodes of constipation. Please follow-up with your primary care doctor to be put on your diabetes and blood pressure medicines. Scripts Dicyclomine Hcl (DICYCLOMINE HCL) 20 Mg Tablet 1 TAB PO TID, #30 TAB 1 Refill Prov: NICANOR HORNER APRN 11/16/21 Polyethylene Glycol 3350 (MIRALAX) 119 Gm Powder 17 GM PO DAILY for constipation, #527 GM 0 Refills dissolve in water Prov: NICANOR HORNER APRN 11/16/21 NICANOR HORNER APRN November 16, 2021 22:00
[2021-11-16 22:09] LABS: CALCIUM 8.3 mg/dL (8.5-10.1); CREATININE 0.7 mg/dL (0.6-1.0); GFR 104.4; POTASSIUM 3.7 mmol/L (3.5-5.1)
[2021-11-16 22:15] LABS: ALBUMIN 2.8 g/dL (3.4-5.0); ALBUMIN/GLOBULIN RATIO 0.6 (1.0-1.7); TOTAL BILIRUBIN 0.5 mg/dL (0.2-1.0); TOTAL PROTEIN 7.8 g/dL (6.4-8.2)
--- NOTE | 2021-11-16 22:40 | RAD ---
Exam: CT of abdomen and pelvis with contrast INDICATION: Abdominal pain, Back pain TECHNIQUE: Sequential axial images through the abdomen and pelvis obtained following the administrati on of 75 mL of Isovue-370 IV contrast. Sagittal and coronal reformatted images were reconstructed fro m the axial data and reviewed. Exposure: One or more of the following in the visualized dose reduction techniques were utilized for this examination: 1. Automated exposure control 2. Adjustment of the MA and/or KV according to patient size 3. Use of iterative of reconstructive technique Comparisons: 01/31/2019 FINDINGS: Heart size is normal. No pericardial effusion. Visualized lung bases are clear. No pleural effusion. Cirrhotic morphology of liver. Spleen, pancreas, gallbladder and adrenals are unremarkable. No perinephric inflammation or hydronephrosis. No renal or ureteral calculi are identified. Bladder is decompressed not well evaluated. Uterus not enlarged. No abnormal adnexal mass. Moderate amount of stool is noted throughout the colon. Appendix is normal. Small bowel is unremarkab le. No free intra-abdominal air or fluid. No obstruction. Abdominal aorta has normal course and caliber. Abdominal vasculature is patent. No enlarged intra-abdominal lymph nodes are identified. No suspicious osseous lesions or acute fractures. IMPRESSION: 1. Cirrhotic morphology of liver. 2. No acute process identified in the abdomen or pelvis. Electronically signed by: Nikky Coughlin MD (11/16/2021 10:37 PM) [facility]
[2021-11-16 23:19] LABS: BACTERIA,URINE FEW /HPF (0-FEW); RBC,URINE 0 /HPF (0-2)
[2021-11-17 00:22] VITALS: BP 155/76
== END | disposition home or self-care (01) ==
LOC: ER 20:59
DX: K74.60 Unspecified cirrhosis of liver (principal); R18.8 Other ascites; K59.00 Constipation, unspecified; E11.65 Type 2 diabetes mellitus with hyperglycemia; E78.00 Pure hypercholesterolemia, unspecified; I10 Essential (primary) hypertension; F17.200 Nicotine dependence, unspecified, uncomplicated
CPT/HCPCS: 36415; 74177; 80053; 81001; 83690; 85025; 96374; 96375; 99285; J2270; J2405; J3010; Q9967